=== PATIENT | male | born 1980 | race Caucasian/White ===

== ENCOUNTER 2017-12-28 15:17 | Emergency (ER) | payer OTHER ==
[2017-12-28] MEDS ORDERED: PRED20TA6 PO (15:41)
[2017-12-28] MEDS ORDERED: OMEP40CA48 PO (15:41)
[2017-12-28] MEDS ORDERED: TRAZ100T31 PO (15:41)
[2017-12-28] MEDS ORDERED: PRE200PT PO (15:41)
[2017-12-28] MEDS ORDERED: BACL-1 PO (15:41)
--- NOTE | 2017-12-28 15:46 | ER Report ---
History and Physical Time Seen By MD: 15:46 Hx. of Stated Complaint: PATIENT STATES THAT YESTERDAY HE FELL AT WORK WENT TO [facility], CAME FROM PHYSICAL THERAPY WITH TERRIBLE PAIN; STATES THAT HE HAS 10/10 PAIN (FLORENTIN CRYSTAL MD) HPI/ROS CHIEF COMPLAINT: back pain HISTORY OF PRESENT ILLNESS: This is a 37 year old male. He had an injury at work where he slipped and landed on his left hip. He has a history of chronic low back pain and this has worsened his pain. He was able to walk and work in the past, but now pain is so severe that he cannot walk. Constant pain with acute worsening. He was seen at [facility] urgent care yesterday and the injury occurred yesterday. He was prescribed prednisone and baclofen, no relief. He went to [facility] today, and they were concerned about a neurological problem. He feels like he is not able to urinate well and felt like he would loose control of urination. He has numbness in the left foot. States that it feels like a club. Normal sensation above the ankle. Burning in medial left thigh. Pain in lateral hip. Has a history of bilateral hip replacements due to avascular necrosis. Has a known problem in low back from degenerative disc disease. Feels numbness in the saddle area. Cannot walk because of pain, but says he is not weak, just in too much pain. No fevers or chills with this. No pain in the upper back or neck, just in the low back where he has chronic pain in the past. No shortness of breath. No chest pain. No loss of control of bowels. REVIEW OF SYSTEMS: as above. (FLORENTIN CRYSTAL MD) Allergies: Coded Allergies: Penicillins (Verified Allergy, Unknown, HIVES, 12/28/17) cephalexin (Verified Allergy, Unknown, 12/28/17) erythromycin base (Verified Allergy, Unknown, 12/28/17) morphine (Verified Allergy, Unknown, 12/28/17) oxycodone (Verified Allergy, Unknown, 12/28/17) Home Meds Active Scripts Methocarbamol (ROBAXIN-750) 750 Mg Tablet, 1-2 TAB PO TID Y for muscle spasm relief, #30 Prov:ASHOK CORBIN DO 12/28/17 Hydromorphone Hcl (DILAUDID) 2 Mg Tablet, 2 MG PO Q4H Y for PAIN, #15 Prov:ASHOK CORBIN DO 12/28/17 Reported Medications Baclofen (BACLOFEN) 10 Mg Tablet, 10 MG PO TID, #30 TAB 12/28/17 Prednisone (PREDNISONE) 20 Mg Tablet, 20 MG PO QDAY, TAB 12/28/17 Trazodone Hcl (TRAZODONE HCL) 100 Mg Tablet, 100 MG PO TID, TAB 12/28/17 Omeprazole (OMEPRAZOLE) 40 Mg Capsule.dr, 40 MG PO QDAY, CAP 12/28/17 Pregabalin (LYRICA) 200 Mg Cap, 200 MG PO 2-3XD, CAP 12/28/17 Reviewed Nurses Notes: Yes (FLORENTIN CRYSTAL MD) Hx Substance Use Disorder: No Hx Alcohol Use: No (FLORENTIN CRYSTAL MD) Constitutional Vital Sign - Last 24 Hours 12/28/17 12/28/17 12/28/17 12/28/17 15:23 15:23 15:30 15:47 Temp 98.0 Pulse 66 61 Resp 18 B/P (MAP) 152/108 152/108 (123) 142/100 (114) Pulse Ox 96 96 O2 Delivery Room Air 12/28/17 12/28/17 12/28/17 12/28/17 16:00 16:17 16:30 16:47 Pulse 60 53 B/P (MAP) 163/103 (123) 158/103 (121) Pulse Ox 95 97 12/28/17 12/28/17 12/28/17 12/28/17 17:00 18:30 18:47 19:00 Pulse 63 57 B/P (MAP) 151/96 (114) 139/102 (114) 150/106 (121) Pulse Ox 96 96 Intake and Output 12/28/17 12/28/17 12/29/17 15:00 23:00 07:00 Intake Total 1000 ml Balance 1000 ml (ASHOK CORBIN ) Physical Exam General Appearance: The patient is alert. No acute distress. Eyes: Pupils are equal, round. No pallor, injection or icterus. ENT: Mucous membranes are moist. Neck: Supple and non tender. Respiratory: Lungs breathing easily and clear. Cardiovascular: Regular rate and rhythm. Normal capillary refill. No edema. Gastrointestinal: Abdomen is soft and non tender. Genitourinary: Normal sensation in the saddle and wilbur-rectal area at this time. Neurological: Alert and oriented x3. Has numbness from the ankle down. Normal in the lower leg. Hyperesthesia in the thigh, more in medial area. No weakness in the legs. Skin: Warm and dry. No rashes. Musculoskeletal: Pain with palpation over the lumbar spine, the sacrum and coccyx, and left hip. Full range of motion is present but with pain. No tenderness over the thoracic or cervical spine. DIFFERENTIAL DIAGNOSIS: After history and physical exam, differential diagnosis was considered for a patient with history of chronic low back pain, fall yesterday at work and now with worsening pain and concern for a neurologic problem associated with the low back pain which is worsened from the fall. ([facility]) Medical Decision Making EKG/Imaging Imaging Results: MRI of the lumbar spine was obtained. The results of the study are EXAMINATION: MRI lumbar spine without IV contrast MRI lumbar spine with IV contrast HISTORY: Fall, history of disc disease, worsened pain, urinary symptoms. COMPARISON: None. TECHNIQUE: Multi-planar, multi-sequence lumbar spine MRI was performed before and after IV contrast. CONTRAST: 15 mL of IV MultiHance gadolinium. FINDINGS: Alignment: Normal. Vertebral marrow signal: Vertebral body heights are maintained. There is no bone marrow edema. Distal thoracic cord: Negative. Conus: negative, terminates at T12-L1. Cauda equina: Negative. Paravertebral soft tissues: Negative. Visualized abdominal and pelvic structures: Negative. Enhancement pattern: Negative. Disc spaces: Lower thoracic spine: Normal. L1-2: Normal. L2-3: Normal. L3-4: Minimal disc bulge eccentric to the left and bilateral facet hypertrophy. Mild left foraminal stenosis without significant central canal stenosis. L4-5: Disc desiccation with broad-based disc protrusion with annular tear and mild bilateral facet hypertrophy. Mild central canal stenosis, mild bilateral lateral recess stenosis, and mild bilateral foraminal stenosis. L5-S1: Normal. IMPRESSION: 1. Mild degenerative disc disease and facet arthropathy is worst at L4-5 where there is mild spinal stenosis, mild bilateral lateral recess stenosis, and mild bilateral foraminal stenosis. No significant nerve root compression. 2. Annular tear at L4-5. 3. No acute fracture of the lumbar spine. The study was read by the radiologist. I viewed the images myself on the PACS system. (ASHOK CORBIN DO) ED Course/Re-evaluation Clinical Indication for ER IV: IV Access ED Course Based on history and injury with current symptoms suggesting possible cauda equina, we went ahead and got an MRI. Dilaudid and Norflex given for pain, and a small amount of relief. During MRI, had further pain, so re-dosed the Dilaudid for him. Turned Over The care of the patient was turned over to Dr. Corbin. Florentin Crystal M.D. I authorize my typed signature that I authenticated this report. (FLORENTIN CRYSTAL MD) Decision to Disposition Date: Dec 28, 2017 Decision to Disposition Time: 20:00 (ASHOK CORBIN DO) Depart Departure Latest Vital Signs Vital Signs Date Time Temp Pulse Resp B/P (MAP) Pulse Ox O2 Delivery O2 Flow Rate FiO2 12/28/17 19:00 57 150/106 (121) 96 12/28/17 15:23 98.0 18 Room Air (ASHOK CORBIN DO) Impression: Primary Impression: Annular tear of lumbar disc Condition: Improved Disposition: HOME OR SELF-CARE Referrals: NOREEN DEL VALLE MD New Scripts Methocarbamol (ROBAXIN-750) 750 Mg Tablet 1-2 TAB PO TID Y for muscle spasm relief, #30 Prov: ASHOK CORBIN DO 12/28/17 Hydromorphone Hcl (DILAUDID) 2 Mg Tablet 2 MG PO Q4H Y for PAIN, #15 Prov: ASHOK CORBIN DO 12/28/17 Patient Instructions: Degenerative Disc Disease (ED) Additional Instructions: Take ibuprofen 200 mg 3-4 tablets 3 times a day with food Follow-up with Dr. Noreen Del Valle, spine surgeon at [facility] within one week FLORENTIN CRYSTAL MD Dec 28, 2017 15:46 ASHOK CORBIN DO Dec 28, 2017 20:04
[2017-12-28] MEDS ORDERED: HYDROmorphone* 1 MG/ML 1 MG/ML ML IVP ONE ×3 (15:55→20:00)
[2017-12-28] MEDS ORDERED: ORPHENADRINE 60MG/2ML INJ IVP ONE (15:55)
[2017-12-28] MEDS ORDERED: NS(*) 0.9% 1000 ML BAG 1,000 ML IV ONE (15:55)
[2017-12-28] MEDS ORDERED: GADOBENATE 529MG/1ML 15ML VIAL IVP ONE (16:20)
--- NOTE | 2017-12-28 17:05 | RADIOLOGY IMAGING REPORT ---
FACILITY: [facility] [place] PATIENT NAME: Ryan King : 1980 MR: [id number] V: [id number] EXAM DATE: ORDERING PHYSICIAN: VANESSA MARTINEZ TECHNOLOGIST: Location: [facility] Patient: Ryan King : 1980 Visit/Account:[id number] Date of Sevice: 12/28/2017 EXAMINATION: Orbit radiograph single view HISTORY: Pre-MRI screening. COMPARISON: None. FINDINGS: Single view of the orbits is obtained. No radiopaque or metallic foreign bodies of either orbit. Visualized bony structures are intact. IMPRESSION: Orbits are cleared for MRI. Report Dictated By: Leigh Vidales MD at 12/28/2017 5:01 PM Report E-Signed By: Leigh Vidales MD at 12/28/2017 5:02 PM WSN:[id number]
--- NOTE | 2017-12-28 18:50 | RADIOLOGY IMAGING REPORT ---
[place] [facility] [place]: Ryan King : 1980 MR: [id number] V: [id number] EXAM DATE: ORDERING PHYSICIAN: VANESSA MARTINEZ TECHNOLOGIST: Location: [facility] Patient: Rayn King : 1980 Visit/Account:[id number] Date of Sevice: 12/28/2017 EXAMINATION: MRI lumbar spine without IV contrast MRI lumbar spine with IV contrast HISTORY: Fall, history of disc disease, worsened pain, urinary symptoms. COMPARISON: None. TECHNIQUE: Multi-planar, multi-sequence lumbar spine MRI was performed before and after IV contrast. CONTRAST: 15 mL of IV MultiHance gadolinium. FINDINGS: Alignment: Normal. Vertebral marrow signal: Vertebral body heights are maintained. There is no bone marrow edema. Distal thoracic cord: Negative. Conus: negative, terminates at T12-L1. Cauda equina: Negative. Paravertebral soft tissues: Negative. Visualized abdominal and pelvic structures: Negative. Enhancement pattern: Negative. Disc spaces: Lower thoracic spine: Normal. L1-2: Normal. L2-3: Normal. L3-4: Minimal disc bulge eccentric to the left and bilateral facet hypertrophy. Mild left foraminal s tenosis without significant central canal stenosis. L4-5: Disc desiccation with broad-based disc protrusion with annular tear and mild bilateral facet hy pertrophy. Mild central canal stenosis, mild bilateral lateral recess stenosis, and mild bilateral fo raminal stenosis. L5-S1: Normal. IMPRESSION: 1. Mild degenerative disc disease and facet arthropathy is worst at L4-5 where there is mild spinal s tenosis, mild bilateral lateral recess stenosis, and mild bilateral foraminal stenosis. No significan t nerve root compression. 2. Annular tear at L4-5. 3. No acute fracture of the lumbar spine. Report Dictated By: Leigh Vidales MD at 12/28/2017 6:31 PM Report E-Signed By: Leigh Vidales MD at 12/28/2017 6:46 PM WSN:[id number]
[2017-12-28] MEDS ORDERED: METH-543 PO (20:03)
[2017-12-28] MEDS ORDERED: HYDR2TAB74 PO (20:03)
[2017-12-28 20:30] VITALS: BP 136/91
[2017-12-28] MEDS ORDERED: HYDROmorphone 2 MG TAB TH 2 TAB/BOTTLE PO ONE (20:45)
== END 2017-12-28 20:55 | disposition home or self-care (01) ==
LOC: ER 15:26
DX: M51.36 Other intervertebral disc degeneration, lumbar region (principal)
CPT/HCPCS: 96361; 96374; 96375; 96376; 99284; A9270; A9577; J1170; J2360; J7030; 70030; 72158

== ENCOUNTER 2018-02-01 14:28 | Emergency (ER) | payer OTHER ==
[~2018-02-01 14:28] MED LIST: BACL-1 PO; HYDR2TAB74 PO; METH-543 PO; OMEP40CA48 PO; PRE200PT PO; PRED20TA6 PO; TRAZ100T31 PO
--- NOTE | 2018-02-01 14:38 | ER Report ---
History and Physical Time Seen By MD: 14:37 Hx. of Stated Complaint: PATIENT SLIPPED AT WORK LAST MONTH. HE IS REPORTING LOWER BACK PAIN. HPI/ROS CHIEF COMPLAINT: Inability to void or defecate 4 days HISTORY OF PRESENT ILLNESS: 37-year-old male patient presents to the emergency room with complaint of inability to void or defecate in the past 4 days. Patient states that he had an injury on 27 December. He states he slipped while he was in the walk-in freezer at [facility]. He states he landed hard on his right hip. Since then he's been having a difficult time with back pain. He did see physical therapy, and stated that he felt he was going to have incontinence of urine at that time. He did come up to the emergency room where he had an MRI done which showed an annular tear in the L4-L5 region. Patient is discharged home and told to follow-up with Dr. Del Valle, orthopedic surgeon. He had an appointment which was canceled by Workmen's [employer]. Patient states that he is not been over from back to work since the injury. He states that in the last 4 days he is been unable to urinate or have a bowel movement. Patient states that he has been taking a muscle relaxer, but has run out recently. He is also having oxycodone which he takes for pain. Patient states he does have some numbness and tingling in the saddle region. He did go see [facility] who referred him here to the emergency room. Patient denies having any fevers, chills, nausea, vomiting or diarrhea. REVIEW OF SYSTEMS: Respiratory: No cough, no dyspnea. Cardiovascular: No chest pain, no palpitations. Gastrointestinal: No vomiting, no abdominal pain. Musculoskeletal: As noted above Allergies: Coded Allergies: Penicillins (Verified Allergy, Unknown, HIVES, 12/28/17) cephalexin (Verified Allergy, Unknown, 12/28/17) erythromycin base (Verified Allergy, Unknown, 12/28/17) morphine (Verified Allergy, Unknown, 12/28/17) oxycodone (Verified Allergy, Unknown, 12/28/17) Home Meds Active Scripts Methocarbamol (ROBAXIN-750) 750 Mg Tablet, 1500 MG PO TID Y for MUSCLE SPASMS, # 30 TAB Prov:SMOOTH HUERTA PERMIT TECHNICIAN 02/01/18 Oxycodone Hcl (OXYCODONE HCL) 5 Mg Capsule, 5 MG PO Q4-6H Y for PAIN, #12 CAPSULE Prov:BRADLEYSMOOTH PERMIT TECHNICIAN 02/01/18 Methocarbamol (ROBAXIN-750) 750 Mg Tablet, 1-2 TAB PO TID Y for muscle spasm relief, #30 Prov:ASHOK RAMIREZ DO 12/28/17 Hydromorphone Hcl (DILAUDID) 2 Mg Tablet, 2 MG PO Q4H Y for PAIN, #15 Prov:ASHOK RAMIREZ DO 12/28/17 Reported Medications Baclofen (BACLOFEN) 10 Mg Tablet, 10 MG PO TID, #30 TAB 12/28/17 Prednisone (PREDNISONE) 20 Mg Tablet, 20 MG PO QDAY, TAB 12/28/17 Trazodone Hcl (TRAZODONE HCL) 100 Mg Tablet, 100 MG PO TID, TAB 12/28/17 Omeprazole (OMEPRAZOLE) 40 Mg Capsule.dr, 40 MG PO QDAY, CAP 12/28/17 Pregabalin (LYRICA) 200 Mg Cap, 200 MG PO 2-3XD, CAP 12/28/17 Past Medical/Surgical History Patient has a past medical history of fibromyalgia, hypertension, hyperlipidemia , asthma, reflux, osteoporosis, osteopenia, fractures, depression Reviewed Nurses Notes: Yes Hx Substance Use Disorder: No Hx Alcohol Use: No Constitutional Vital Sign - Last 24 Hours 02/01/18 02/01/18 02/01/18 02/01/18 14:30 14:31 14:45 14:58 Temp 98.3 Pulse 78 67 Resp 20 B/P (MAP) 142/101 142/101 (115) 137/89 (105) Pulse Ox 98 94 O2 Delivery Room Air 02/01/18 02/01/18 02/01/18 02/01/18 15:00 15:15 15:28 15:30 Pulse 68 B/P (MAP) 125/86 (99) 140/117 (125) 130/93 (105) Pulse Ox 92 02/01/18 02/01/18 02/01/18 02/01/18 16:30 17:00 17:14 17:30 Pulse ??? 66 64 B/P (MAP) 130/89 (103) 123/97 (106) Pulse Ox 92 91 02/01/18 02/01/18 17:45 17:55 B/P (MAP) 128/88 (101) 124/94 (104) Physical Exam General Appearance: The patient is alert, has no immediate need for airway protection and no current signs of toxicity. Respiratory: Chest is non tender, lungs are clear to auscultation. Cardiac: regular rate and rhythm Gastrointestinal: Abdomen is soft and non tender, no masses, bowel sounds normal. Rectal exam showed patient had good rectal tone. Musculoskeletal: Neck: Neck is supple and non tender. Extremities have full range of motion and are non tender. Skin: No rashes or lesions. Neuro: Patient had good strength bilaterally in his legs, sensation was present in both feet, patient was able to identify the direction that the toes were pointing. DIFFERENTIAL DIAGNOSIS: After history and physical exam differential diagnosis was considered for back pain including but not limited to muscular pain, herniated disc, spine fracture, intra-abdominal causes and urinary tract infection. Included in the differential is Cauda equina. Medical Decision Making Data Points Result Diagram: 02/01/18 1537 Laboratory Hematology Test 02/01/18 15:06 02/01/18 15:37 Urine Color Yellow Urine Clarity Clear Urine pH 6.0 pH (4.8-9.5) Urine Specific Leopold 1.016 Urine Protein Negative mg/dL (NEGATIVE) Urine Glucose (UA) Negative mg/dL (NEGATIVE) Urine Ketones Negative mg/dL (NEGATIVE) Urine Blood Negative (NEGATIVE) Urine Nitrite Negative (NEGATIVE) Urine Bilirubin Negative (NEGATIVE) Urine Urobilinogen Negative mg/dL (0.2-1.9) Urine Leukocyte Esterase Negative (NEGATIVE) Urine RBC <1 /HPF (0-2/HPF) Urine WBC <1 /HPF (0-5/HPF) Urine Squamous Epithelial Cells Few /LPF (</=FEW) Urine Bacteria Negative /HPF (NONE-FEW) Urine Mucus None /HPF (NONE-FEW) Sodium Level 139 mmol/L (137-145) Potassium Level 4.1 mmol/L (3.5-5.0) Chloride Level 101 mmol/L (98-107) Carbon Dioxide Level 28 mmol/L (22-30) Blood Urea Nitrogen 15 mg/dl (9-21) Creatinine 1.20 mg/dl (0.66-1.25) Glomerular Filtration Rate Calc > 60.0 Random Glucose 85 mg/dl (75-110) Calcium Level 9.5 mg/dl (8.4-10.2) Total Bilirubin 1.3 mg/dl (0.2-1.3) Aspartate Amino Transf (AST/SGOT) 39 U/L (0-35) Alanine Aminotransferase (ALT/SGPT) 51 U/L (0-56) Alkaline Phosphatase 83 U/L (0-126) Total Protein 7.5 g/dl (6.3-8.2) Albumin 4.4 g/dl (3.5-5.0) Chemistry Test 02/01/18 15:06 02/01/18 15:37 Urine Color Yellow Urine Clarity Clear Urine pH 6.0 pH (4.8-9.5) Urine Specific Leopold 1.016 Urine Protein Negative mg/dL (NEGATIVE) Urine Glucose (UA) Negative mg/dL (NEGATIVE) Urine Ketones Negative mg/dL (NEGATIVE) Urine Blood Negative (NEGATIVE) Urine Nitrite Negative (NEGATIVE) Urine Bilirubin Negative (NEGATIVE) Urine Urobilinogen Negative mg/dL (0.2-1.9) Urine Leukocyte Esterase Negative (NEGATIVE) Urine RBC <1 /HPF (0-2/HPF) Urine WBC <1 /HPF (0-5/HPF) Urine Squamous Epithelial Cells Few /LPF (</=FEW) Urine Bacteria Negative /HPF (NONE-FEW) Urine Mucus None /HPF (NONE-FEW) Glomerular Filtration Rate Calc > 60.0 Calcium Level 9.5 mg/dl (8.4-10.2) Total Bilirubin 1.3 mg/dl (0.2-1.3) Aspartate Amino Transf (AST/SGOT) 39 U/L (0-35) Alanine Aminotransferase (ALT/SGPT) 51 U/L (0-56) Alkaline Phosphatase 83 U/L (0-126) Total Protein 7.5 g/dl (6.3-8.2) Albumin 4.4 g/dl (3.5-5.0) Urinalysis Test 02/01/18 15:06 Urine Color Yellow Urine Clarity Clear Urine pH 6.0 pH (4.8-9.5) Urine Specific Leopold 1.016 Urine Protein Negative mg/dL (NEGATIVE) Urine Glucose (UA) Negative mg/dL (NEGATIVE) Urine Ketones Negative mg/dL (NEGATIVE) Urine Blood Negative (NEGATIVE) Urine Nitrite Negative (NEGATIVE) Urine Bilirubin Negative (NEGATIVE) Urine Urobilinogen Negative mg/dL (0.2-1.9) Urine Leukocyte Esterase Negative (NEGATIVE) Urine RBC <1 /HPF (0-2/HPF) Urine WBC <1 /HPF (0-5/HPF) Urine Squamous Epithelial Cells Few /LPF (</=FEW) Urine Bacteria Negative /HPF (NONE-FEW) Urine Mucus None /HPF (NONE-FEW) EKG/Imaging Imaging MRI of the lumbar spine with and without contrast Indication: Sagittal paracentesis. Back injury one month ago. Worsening pain. Comparison: 12/28/2017. Technique: Sagittal T2-weighted, sagittal STIR, sagittal T1-weighted, axial T2- weighted fat-saturated, and axial T1-weighted images of the lumbar spine were obtained. Sagittal T1-weighted fat saturated post contrast and axial T1- weighted post contrast images were obtained through the lumbar spine. A total of 15 ml IV MultiHance contrast was administered. Findings: The vertebral bodies are aligned and of normal size and signal intensity. No compression fractures or bony lesions. The soft tissues are unremarkable. The lumbar spine down to the L2-3 level is normal. There is no abnormal enhancement or enhancing lesion seen on this examination. L3-L4: The distal show mild broad-based disc bulge with a slightly more prominent process at the left foraminal region. This does cause mild narrowing of the left neural foramina without affecting left exiting nerve. There is mild facet arthropathy without other significant degenerative changes. The right neural foramina shows no significant narrowing of the right exiting nerve is normal. The spinal nerve roots are normal. No significant change from the previous exam. L4-L5: There is degenerative facet changes with mild disc space narrowing. No other significant degenerative osseous changes. The disc is desiccated and does show a broadbase disc bulge without focal disc herniation. There is continued increased signal in the posterior annulus consistent with a tear which is stable. These findings do cause mild narrowing of the canal, foramina recess bilaterally and neural foramina bilaterally. The exiting nerves do not appear to be affected. No significant change from the previous exam. L5-S1: No significant degenerative osseous changes. No obvious disc herniation or protrusions. No canal or foraminal narrowing. The exiting nerves are normal. The S1 nerves are normal. Spinal nerve roots are normal. There is no focal area of abnormal contrast enhancement. Impression: 1. No acute abnormality. No abnormal enhancement. 2. Stable degenerative disc and osseous changes at L3-4 and L4-5 level with more prominent L4-5 level. Mild sequelae is described above. Report Dictated By: Bret Esteban at 02/01/2018 5:14 PM Report E-Signed By: Bret Esteban at 02/01/2018 5:22 PM KUB SINGLE VIEW ABDOMEN INDICATION: Unable to have a bowel movement in 3-4 days. COMPARISON: None available FINDINGS: Moderate stool seen throughout colon. Bowel gas pattern is nonobstructed nondilated with some fluid-filled loops small bowel. Abdominal soft tissues are grossly normal without suspicious lucencies or abnormal calcifications. No acute bony abnormality. IMPRESSION: Moderate stool seen throughout colon. No indication of obstruction. Report Dictated By: Bret Esteban at 02/01/2018 3:11 PM Report E-Signed By: Bret Esteban at 02/01/2018 3:12 PM ED Course/Re-evaluation ED Course Patient was admitted to exam room, history and physical were obtained. Differential diagnoses were considered. On examination patient did have low back pain. Seemed to be worse on the right side than the left. Patient was complaining of some subtle paresthesia as well as difficulty urinating and defecating. A rectal exam was done patient had good rectal tone. An MRI was done after a bladder scan was done. Patient had 400 cc in his bladder. Patient did urinate and then we got a repeat bladder scan which showed zero. Due to the contrast on the MRI and a CMP was done which was normal. MRI showed no acute changes since last MRI. I discussed findings with patient. Patient was complaining pain did receive 50 mg of fentanyl which he said did not improve his pain at all. We will go ahead and discharge patient home. I expressed to the patient the need that he has to follow-up with orthopedics as that is going to be the stethoscope fixes. I encouraged him to follow-up with Workmen's [employer]. Patient is return to the emergency room if condition worsens. We will go ahead and give the patient a muscle relaxer as well as oxycodone. Patient verbalized understanding and agreement with plan. Decision to Disposition Date: Feb 01, 2018 Decision to Disposition Time: 17:40 Depart Departure Latest Vital Signs Vital Signs Date Time Temp Pulse Resp B/P (MAP) Pulse Ox O2 Delivery O2 Flow Rate FiO2 02/01/18 17:55 124/94 (104) 02/01/18 17:30 64 91 02/01/18 14:30 98.3 20 Room Air Impression: Primary Impression: Annular tear of lumbar disc Additional Impression: Back pain Condition: Improved Disposition: HOME OR SELF-CARE Referrals: ANGEL TENORIO (PCP) NOREEN DEL VALLE MD New Scripts Methocarbamol (ROBAXIN-750) 750 Mg Tablet 1500 MG PO TID Y for MUSCLE SPASMS, #30 TAB Prov: SMOOTH HUERTA 02/01/18 Oxycodone Hcl (OXYCODONE HCL) 5 Mg Capsule 5 MG PO Q4-6H Y for PAIN, #12 CAPSULE Prov: SMOOTH HUERTA 02/01/18 Patient Instructions: Acute Low Back Pain (ED) Additional Instructions: Limit activity by pain. Get plenty of rest. Follow up with Dr. Del Valle at [facility], call Workmen's Comp to get the approval. Return to the ER if condition worsens. Take stool softeners daily. Problem Qualifiers Additional Impression: Back pain Back pain location: low back pain Chronicity: acute Back pain laterality: right Sciatica presence: without sciatica Qualified Codes: M54.5 - Low back pain SMOOTH HUERTA Feb 01, 2018 14:38
[2018-02-01] MEDS ORDERED: GADOBENATE 529MG/1ML 15ML VIAL IVP ONE (15:15)
--- NOTE | 2018-02-01 15:16 | RADIOLOGY IMAGING REPORT ---
FACILITY: [facility] PATIENT NAME: Ryan King : 1980 MR: [id number] V: [id number] EXAM DATE: ORDERING PHYSICIAN: SMOOTH HUERTA TECHNOLOGIST: Location: [facility] [place] Patient: Ryan King : 1980 Visit/Account:[id number] Date of Sevice: 02/01/2018 KUB SINGLE VIEW ABDOMEN INDICATION: Unable to have a bowel movement in 3-4 days. COMPARISON: None available FINDINGS: Moderate stool seen throughout colon. Bowel gas pattern is nonobstructed nondilated with some fluid-filled loops small bowel. Abdominal soft tissues are grossly normal without suspicious marcela encies or abnormal calcifications. No acute bony abnormality. IMPRESSION: Moderate stool seen throughout colon. No indication of obstruction. Report Dictated By: Bret Esteban at 02/01/2018 3:11 PM Report E-Signed By: Bret Esteban at 02/01/2018 3:12 PM WSN:[id number]
[2018-02-01] MEDS ORDERED: fentaNYL CITR 100 MCG/2 ML AMP IVP ONE (17:05)
--- NOTE | 2018-02-01 17:26 | RADIOLOGY IMAGING REPORT ---
FACILITY: [facility] PATIENT NAME: Ryan King : 1980 MR: [id number] V: [id number] EXAM DATE: ORDERING PHYSICIAN: SMOOTH HUERTA TECHNOLOGIST: Location: [facility] Patient: Ryan King : 1980 Visit/Account:[id number] Date of Sevice: 02/01/2018 MRI of the lumbar spine with and without contrast Indication: Sagittal paracentesis. Back injury one month ago. Worsening pain. Comparison: 12/28/2017. Technique: Sagittal T2-weighted, sagittal STIR, sagittal T1-weighted, axial T2-weighted fat-saturated , and axial T1-weighted images of the lumbar spine were obtained. Sagittal T1-weighted fat saturated post contrast and axial T1-weighted post contrast images were obtained through the lumbar spine. A to sebastian of 15 ml IV MultiHance contrast was administered. Findings: The vertebral bodies are aligned and of normal size and signal intensity. No compression fractures or bony lesions. The soft tissues are unremarkable. The lumbar spine down to the L2-3 level is normal. There is no abnormal enhancement or enhancing lesion seen on this examination. L3-L4: The distal show mild broad-based disc bulge with a slightly more prominent process at the le ft foraminal region. This does cause mild narrowing of the left neural foramina without affecting lef t exiting nerve. There is mild facet arthropathy without other significant degenerative changes. The right neural foramina shows no significant narrowing of the right exiting nerve is normal. The spinal nerve roots are normal. No significant change from the previous exam. L4-L5: There is degenerative facet changes with mild disc space narrowing. No other significant degen erative osseous changes. The disc is desiccated and does show a broadbase disc bulge without focal di sc herniation. There is continued increased signal in the posterior annulus consistent with a tear wh ich is stable. These findings do cause mild narrowing of the canal, foramina recess bilaterally and n eural foramina bilaterally. The exiting nerves do not appear to be affected. No significant change fr om the previous exam. L5-S1: No significant degenerative osseous changes. No obvious disc herniation or protrusions. No c anal or foraminal narrowing. The exiting nerves are normal. The S1 nerves are normal. Spinal nerve ro ots are normal. There is no focal area of abnormal contrast enhancement. Impression: 1. No acute abnormality. No abnormal enhancement. 2. Stable degenerative disc and osseous changes at L3-4 and L4-5 level with more prominent L4-5 level . Mild sequelae is described above. Report Dictated By: Bret Esteban at 02/01/2018 5:14 PM Report E-Signed By: Bret Esteban at 02/01/2018 5:22 PM WSN:[id number]
[2018-02-01] MEDS ORDERED: METHOCARBAMOL 500 MG TAB PO ONE (17:50)
[2018-02-01] MEDS ORDERED: oxyCODONE HCL 5 MG CAP PO ONE (17:50)
[2018-02-01] MEDS ORDERED: METH-543 PO (17:52)
[2018-02-01] MEDS ORDERED: OXYC5CAP21 PO (17:52)
[2018-02-01 17:55] VITALS: BP 124/94
== END 2018-02-01 18:04 | disposition home or self-care (01) ==
LOC: ER 14:38
DX: M51.36 Other intervertebral disc degeneration, lumbar region (principal); M79.7 Fibromyalgia; I10 Essential (primary) hypertension; E78.5 Hyperlipidemia, unspecified; K21.9 Gastro-esophageal reflux disease without esophagitis; M19.90 Unspecified osteoarthritis, unspecified site; F32.9 Major depressive disorder, single episode, unspecified; Z79.899 Other long term (current) drug therapy
CPT/HCPCS: 72158; 74018; 81001; 96374; 99284; A9577; J3010; 82040; 82247; 82310; 82374; 82435; 82565; 82947; 84075; 84132; 84155; 84295; 84450; 84460; 84520

== ENCOUNTER → 2018-03-21 | Outpatient (CLI) | payer BC, OTHER ==
[~2018-03-21] MED LIST changes: +CYCL10TA29 PO; +DEX4 PO; +LORA-1455 PO; +ONDA4TAB PO; +OXYC5CAP21 PO; +PROC10TA4 PO; +SIMV-49 PO; +VORT10TA PO
--- NOTE | 2018-03-21 14:54 | RADIOLOGY IMAGING REPORT ---
FACILITY: [facility] [place] PATIENT NAME: Ryan King : 1980 MR: [id number] V: [id number] EXAM DATE: ORDERING PHYSICIAN: FLORENTIN JOHNSON TECHNOLOGIST: Location: [facility] [place] Patient: Ryan King : 1980 Visit/Account:[id number] Date of Sevice: 03/21/2018 PICC LINE INSERTION HISTORY: Single-lumen left arm PICC line for chemotherapy requested Technique: The skin in the left upper arm was prepped draped and anesthetized with 1% lidocaine. Utilizing ultr asound guidance entry into the right brachial vein achieved. An 018 wire was advanced to the right h eart and a peel-away catheter placed. The wire was removed for measuring the PICC line which was cut at 41.5 cm. This was advanced through the peel-away sheath with the distal tip terminating at the c avoatrial junction in good position. A postplacement film documented good positioning. The catheter was flushed with saline. A buffered catheter was placed. The catheter was then secured to the left arm with a stay fix device. IMPRESSION: 1. Successful placement of a single-lumen PICC line from the left arm as described. Fluoroscopy time of 0.8 minutes. AK 2.9mGy Report Dictated By: Nelson Andres MD at 03/21/2018 2:44 PM Report E-Signed By: Nelson Andres MD at 03/21/2018 2:49 PM WSN:[email or web address]
--- NOTE | 2018-03-21 15:00 | RADIOLOGY IMAGING REPORT ---
FACILITY: [facility] [place] PATIENT NAME: Ryan King : 1980 MR: [id number] V: [id number] EXAM DATE: ORDERING PHYSICIAN: FLORENTIN JOHNSON TECHNOLOGIST: Location: [facility] Patient: Ryan King : 1980 Visit/Account:[id number] Date of Sevice: 03/21/2018 PICC LINE PLACEMENT HISTORY: Ultrasound provided for placement of a PICC line for chemotherapy Bilateral upper extremity ultrasound: Findings Ultrasound imaging demonstrating patent right and left brachial veins which are widely patent. There were small attenuated basilic veins seen. The patient desired placement within the left arm. Ultrasound was utilized to gain entrance into the left basilic vein. A permanent image documenting p lacement of the 0.018 wire within the left brachial vein sent to PACS. IMPRESSION: 1. Ultrasound utilized for gaining entrance into the left basilic vein for placement of a chemotherapy PICC line. Report Dictated By: Nelson Andres MD at 03/21/2018 2:49 PM Report E-Signed By: Nelson Andres MD at 03/21/2018 2:55 PM WSN:[email or web address]
== END ==
LOC: US 00:33
PROVIDERS: ATTEND Internal Medicine Hematology
DX: C02.9 Malignant neoplasm of tongue, unspecified (principal)
CPT/HCPCS: 36569; 76937; C1751

== ENCOUNTER 2018-04-09 17:25 | Emergency (ER) | payer BC ==
[~2018-04-09 17:25] MED LIST changes: +BUSP15TA69 PO
[2018-04-09 17:29] VITALS: BP 156/106
--- NOTE | 2018-04-09 18:11 | ER Report ---
History and Physical Time Seen By MD: 18:11 Hx. of Stated Complaint: left index finger lac from a knife while cutting up a deer HPI/ROS CHIEF COMPLAINT: Finger laceration HISTORY OF PRESENT ILLNESS: 38-year-old male patient presents to the emergency room with complaint of a left index finger laceration. Patient states that he was skinning his tea when he touched the bladed knife against his finger. Patient states that his last tetanus shot was approximately one year ago. Patient denies any numbness tingling. Patient states that this occurred approximately 20 minutes prior to arrival. He did apply pressure to the finger. 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 Allergies: Coded Allergies: Penicillins (Verified Allergy, Unknown, HIVES, 04/09/18) cephalexin (Verified Allergy, Unknown, 04/09/18) erythromycin base (Verified Allergy, Unknown, 04/09/18) morphine (Verified Allergy, Unknown, 04/09/18) oxycodone (Verified Allergy, Unknown, 04/09/18) Home Meds Active Scripts Sulfamethoxazole/Trimet 800-160 Mg Tab (BACTRIM DS TABLET) 1 Each Tablet, 1 TAB PO Q12H, #14 TAB Prov:SMOOTH HUERTA 04/09/18 Methocarbamol (ROBAXIN-750) 750 Mg Tablet, 1-2 TAB PO TID PRN for muscle spasm relief, #30 Prov:ASHOK RAMIREZ DO 12/28/17 Reported Medications Buspirone Hcl (BUSPIRONE HCL) 15 Mg Tablet, 15 MG PO BID, #10 TAB 04/02/18 Dexamethasone 4 Mg Tab (DEXAMETHASONE 4 MG TAB) 4 Mg Tab, 8 MG PO DAILY for 3 Days, TAB Take on days 2-4 following cisplatin 03/21/18 Lorazepam (ATIVAN) 0.5 Mg Tablet, 0.5 MG PO Q6H PRN for ANXIETY/INSOMNIA Take 0.5 to 1 mg 03/21/18 Ondansetron (ZOFRAN ODT) 4 Mg Tab.rapdis, 8 MG PO Q8H PRN for NAUSEA/VOMITING, TAB.MAYRA 03/21/18 Prochlorperazine Maleate (Compazine) 10 Mg Tablet, 10 MG PO Q8H PRN for NAUSEA/VOMITING 03/21/18 Simvastatin (SIMVASTATIN) 20 Mg Tablet, 20 MG PO HS, TAB 03/14/18 Cyclobenzaprine Hcl (CYCLOBENZAPRINE HCL) 10 Mg Tablet, 20 MG PO DAILY, #9 TAB 03/14/18 Vortioxetine Hydrobromide (Brintellix) 10 Mg Tablet, 1 TAB PO DAILY 03/13/18 Trazodone Hcl (TRAZODONE HCL) 100 Mg Tablet, 100 MG PO PRN, TAB 12/28/17 Omeprazole (OMEPRAZOLE) 40 Mg Capsule.dr, 40 MG PO QDAY, CAP 12/28/17 Pregabalin (LYRICA) 200 Mg Cap, 200 MG PO 2-3XD, CAP 12/28/17 Discontinued Reported Medications Lorazepam (ATIVAN) 0.5 Mg Tablet, 0.5 MG PO PRN 04/08/18 Baclofen (BACLOFEN) 10 Mg Tablet, 10 MG PO TID, #30 TAB 12/28/17 Past Medical/Surgical History Patient has a past medical history of fibromyalgia, heart murmur, hypertension, hyperlipidemia, asthma, reflux, osteopenia, depression and anxiety. Patient has surgical history of surgery for GI bleed, appendectomy, bilateral hip replacement, shoulder surgery 3. Reviewed Nurses Notes: Yes Hx Smoking: Yes Smoking Status: Former Smoker Exposure to Second Hand Smoke?: No Hx Substance Use Disorder: No Hx Alcohol Use: No Constitutional Vital Sign - Last 24 Hours 04/09/18 17:29 Temp 98.0 Pulse 108 Resp 12 B/P (MAP) 156/106 Pulse Ox 95 O2 Delivery Room Air Physical Exam General appearance: Alert no distress. Respiratory: Chest is non tender, lungs are clear to auscultation. Cardiac: Regular rate and rhythm. Skin: Patient does have a 1.5 similar laceration to the left index finger, it is at the PIP joint. There is no tendon or ligament involvement. Patient has good movement with finger. DIFFERENTIAL DIAGNOSIS: After history and physical exam differential diagnosis was considered for laceration. Medical Decision Making ED Course/Re-evaluation ED Course Patient is admitted and examined, history of physical were obtained. The differential diagnoses were considered. On examination patient has a 1.5cm laceration to the left index finger, at the the PIP joint. The finger was anesthetized, cleaned and repaired described below. Patient is up-to-date on his tetanus shot. Patient tolerated procedure well. We'll go ahead and discharge him home at this time. Due to the location of laceration as well as him being on chemotherapy we'll go ahead and treat him with antibiotics. He is follow-up with a cancer center in 710 days to have sutures removed. He is to return to the emergency room with any concerns. He is monitor for signs of infection. Patient verbalized understanding and agreement with plan. Procedure: Laceration repair. Verbal consent was obtained from the patient. The 1.5 cm laceration on the left index finger, at the PIP joint was anesthetized in the usual fashion. The wound was scrubbed, draped and explored to its base with a gloved finger. There were no deep structures involved. No tendon injury was identified. The wound was repaired with 5 simple interrupted sutures using 5-0 Prolene material. The wound repair was simple. The procedure was performed by myself. Decision to Disposition Date: Apr 09, 2018 Decision to Disposition Time: 18:45 Depart Departure Latest Vital Signs Vital Signs Date Time Temp Pulse Resp B/P (MAP) Pulse Ox O2 Delivery O2 Flow Rate FiO2 04/09/18 17:29 98.0 108 12 156/106 95 Room Air Impression: Primary Impression: Laceration of left index finger Condition: Improved Disposition: HOME OR SELF-CARE Referrals: ANGEL TENORIO (PCP) New Scripts Sulfamethoxazole/Trimet 800-160 Mg Tab (BACTRIM DS TABLET) 1 Each Tablet 1 TAB PO Q12H, #14 TAB Prov: SMOOTH HUERTA 04/09/18 Patient Instructions: Finger Laceration (ED) Additional Instructions: Keep wound dry for 48 hours. Follow up with your primary care provider in the next 7-10 days to have sutures removed. Monitor for signs of infection; redness, swelling, heat, discharge, increasing pain or red streaking. Take Tylenol or Ibuprofen as needed for pain. Return to the ER with any concerns. You may change dressing as needed. Problem Qualifiers Primary Impression: Laceration of left index finger Encounter type: initial encounter Damage to nail status: without damage Foreign body presence: without foreign body Qualified Codes: S61.211A - Laceration without foreign body of left index finger without damage to nail, initial encounter SMOOTH HUERTA Apr 09, 2018 18:11
[2018-04-09] MEDS ORDERED: SULF-198 PO (18:44)
== END 2018-04-09 18:50 | disposition home or self-care (01) ==
LOC: ER 18:21
DX: S61.211A Laceration without foreign body of left index finger without damage to nail, initial encounter (principal)
CPT/HCPCS: 99282

== ENCOUNTER → 2018-05-03 | Outpatient (CLI) | payer BC ==
[~2018-05-03] MED LIST changes: +APIX5TAB PO; +BARIUM SULFATE 148 GM POWDER ONE; +BARIUM SULFATE 240 ML ORAL SUS (NECTAR) ONE; +HYDR473S9; +SULF-198 PO
--- NOTE | 2018-05-03 13:13 | RADIOLOGY IMAGING REPORT ---
FACILITY: [facility] PATIENT NAME: Ryan King : 1980 MR: [id number] V: [id number] EXAM DATE: ORDERING PHYSICIAN: FLORENTIN JOHNSON TECHNOLOGIST: Location: [facility] - [place] Patient: Ryan King : 1980 Visit/Account:[id number] Date of Sevice: 05/03/2018 Barium Swallow Study with Speech Pathology Provided history: History of tongue carcinoma. Dysphagia. COMPARISON STUDIES: None FINDINGS: Fluoroscopy in the radiology part was provided for speech pathology to evaluate swallowing function. A Radiologist was present during the fluoroscopic examination. Anatomical:Negative Aspiration:none Additional incidental: Flash penetration was observed with thin liquids. IMPRESSION: Mild oral and pharyngeal dysphagia. Please refer to the Speech Pathology report for additional information. Fluoroscopy time 2.4 minute DAP 598.94 uGy-m2 Report Dictated By: Grace Rao MD at 05/03/2018 1:02 PM Report E-Signed By: Grace Rao MD at 05/03/2018 1:09 PM WSN:AMIUMUVÁngel
== END ==
LOC: RAD 04:30
PROVIDERS: ATTEND Internal Medicine Hematology
DX: R13.11 Dysphagia, oral phase (principal); R13.12 Dysphagia, oropharyngeal phase
CPT/HCPCS: 74230

== ENCOUNTER 2018-05-05 01:35 | Emergency (ER) | payer BC ==
[~2018-05-05 01:35] MED LIST changes: -BARIUM SULFATE 148 GM POWDER ONE; -BARIUM SULFATE 240 ML ORAL SUS (NECTAR) ONE; -HYDR473S9
--- NOTE | 2018-05-05 01:38 | ER Report ---
History and Physical Time Seen By MD: 01:38 HPI/ROS CHIEF COMPLAINT: Fever HISTORY OF PRESENT ILLNESS: 38-year-old male diagnosed with squamous cell throat cancer, status post partial glossectomy. Patient undergoing chemotherapy every Sunday. He is getting radiation 5 days a week to his throat area. Patient has thrush in his throat and is receiving treatment. He developed a fever last evening of 103. He had another repeat fever of 102. He called in to the oncology providers who recommended he come in for evaluation for the source of the fever. Vision has a mucousy cough. And some upper respiratory infection symptoms. Likely related to radiation therapy. Patient's been taking hydrocodone for pain relief with minimal help relieving his throat pain REVIEW OF SYSTEMS: Respiratory: As above Cardiovascular: No chest pain, no palpitations. Gastrointestinal: No vomiting, no abdominal pain. Musculoskeletal: No back pain. Allergies: Coded Allergies: Penicillins (Verified Allergy, Unknown, HIVES, 04/09/18) cephalexin (Verified Allergy, Unknown, 04/09/18) erythromycin base (Verified Allergy, Unknown, 04/09/18) morphine (Verified Allergy, Unknown, 04/09/18) Home Meds Active Scripts Hydromorphone Hcl (DILAUDID) 2 Mg Tablet, 1-2 TAB PO Q4H PRN for throat cancer pain relief, #15 Prov:ASHOK RAMIREZ DO 05/05/18 Reported Medications Hydrocodone/Acetaminophen 10/300 MG/15 ML (Lortab 10 mg-300 mg/15 ml Elxr) 473 Ml Solution 05/05/18 Apixaban (ELIQUIS) 5 Mg Tablet, 5 MG PO Take 10 mg PO BID x 7 days; then 5 mg PO BID x 3 weeks 04/19/18 Buspirone Hcl (BUSPIRONE HCL) 15 Mg Tablet, 15 MG PO BID, #10 TAB 04/02/18 Dexamethasone 4 Mg Tab (DEXAMETHASONE 4 MG TAB) 4 Mg Tab, 8 MG PO DAILY for 3 Days, TAB Take on days 2-4 following cisplatin 03/21/18 Lorazepam (ATIVAN) 0.5 Mg Tablet, 0.5 MG PO Q6H PRN for ANXIETY/INSOMNIA Take 0.5 to 1 mg 03/21/18 Ondansetron (ZOFRAN ODT) 4 Mg Tab.rapdis, 8 MG PO Q8H PRN for NAUSEA/VOMITING, T AB.MAYRA 03/21/18 Prochlorperazine Maleate (Compazine) 10 Mg Tablet, 10 MG PO Q8H PRN for NAUSEA/VOMITING 03/21/18 Simvastatin (SIMVASTATIN) 20 Mg Tablet, 20 MG PO HS, TAB 03/14/18 Cyclobenzaprine Hcl (CYCLOBENZAPRINE HCL) 10 Mg Tablet, 20 MG PO DAILY, #9 TAB 03/14/18 Vortioxetine Hydrobromide (Brintellix) 10 Mg Tablet, 1 TAB PO DAILY 03/13/18 Trazodone Hcl (TRAZODONE HCL) 100 Mg Tablet, 100 MG PO PRN, TAB 12/28/17 Omeprazole (OMEPRAZOLE) 40 Mg Capsule.dr, 40 MG PO QDAY, CAP 12/28/17 Pregabalin (LYRICA) 200 Mg Cap, 200 MG PO 2-3XD, CAP 12/28/17 Discontinued Scripts Sulfamethoxazole/Trimet 800-160 Mg Tab (BACTRIM DS TABLET) 1 Each Tablet, 1 TAB PO Q12H, #14 TAB Prov:SMOOTH HUERTA [employer] 04/09/18 Methocarbamol (ROBAXIN-750) 750 Mg Tablet, 1-2 TAB PO TID PRN for muscle spasm relief, #30 Prov:ASHOK RAMIREZ DO 12/28/17 Past Medical/Surgical History PAST MEDICAL HISTORY 1. Fibromyalgia. 2. Eosinophilic gastritis. 3. 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 PAST SURGICAL HISTORY 1. Right hemiglossectomy on February 14, 2018. 2. Appendectomy. 3. Hip replacement. 4. Hernia repair. 5. Three left shoulder arthroscopic surgeries. 6. Three left knee arthroscopic surgeries. Reviewed Nurses Notes: Yes Old Medical Records Reviewed: Yes Hx Smoking: Yes Smoking Status: Former Smoker Exposure to Second Hand Smoke?: No Hx Substance Use Disorder: No Hx Alcohol Use: No Constitutional Vital Sign - Last 24 Hours 05/05/18 05/05/18 05/05/18 05/05/18 01:35 01:39 01:40 01:50 Temp 101.1 Pulse ??? 127 120 Resp 15 20 B/P (MAP) 130/95 130/95 (107) Pulse Ox 93 96 O2 Delivery Room Air 05/05/18 05/05/18 05/05/18 05/05/18 02:00 02:20 02:35 02:50 Pulse 109 109 ??? Resp 17 B/P (MAP) 123/85 (98) 121/82 (95) Pulse Ox 91 05/05/18 05/05/18 05/05/18 05/05/18 02:55 03:00 03:10 03:25 Pulse ??? 103 ??? Resp 11 B/P (MAP) 126/79 (95) Pulse Ox 88 05/05/18 05/05/18 05/05/18 05/05/18 03:30 03:40 03:55 04:00 Pulse 98 Resp 9 B/P (MAP) 127/89 (102) 125/79 (94) 119/82 (94) Pulse Ox 95 05/05/18 05/05/18 05/05/18 04:25 04:40 05:00 Temp 98.9 Pulse 92 88 Resp 14 8 B/P (MAP) 124/83 (97) Pulse Ox 95 Physical Exam General Appearance: The patient is alert, has no immediate need for airway protection and no current signs of toxicity. Vital signs stable, mildly tachycardic, temperature 101.4 HEENT: Pupils equal and round no injection. TMs normal, oropharynx with gross erythema, thrush noted on soft palate extending to the tonsillar pillars Respiratory: Chest is non tender, lungs are clear to auscultation. No wheezing or rails Cardiac: regular rate and rhythm, no murmur Gastrointestinal: Abdomen is soft and non tender, no masses, bowel sounds normal. Musculoskeletal: Neck: Neck is supple and non tender. Extremities have full range of motion and are non tender. Skin: There is erythema to the skin of the neck from radiation therapy. It could also be cellulitis. DIFFERENTIAL DIAGNOSIS: After history and physical exam differential diagnosis was considered for adult fever including but not limited to viral syndromes including influenza, urinary tract infection, pneumonia and sepsis. Medical Decision Making Data Points Result Diagram: 05/05/18 0157 05/05/18 0157 Laboratory Hematology Test 05/05/18 01:57 05/05/18 02:48 05/05/18 04:28 Red Blood Count 4.11 M/uL (4.00-5.60) Mean Corpuscular Volume 93.2 fL (80.0-96.0) Mean Corpuscular Hemoglobin 32.1 pg (26.0-33.0) Mean Corpuscular Hemoglobin Concent 34.4 g/dL (32.0-36.0) Red Cell Distribution Width 18.3 % (11.5-14.5) Mean Platelet Volume 7.2 fL (7.2-11.1) Neutrophils (%) (Auto) % (39.4-72.5) Lymphocytes (%) (Auto) % (17.6-49.6) Monocytes (%) (Auto) % (4.1-12.4) Eosinophils (%) (Auto) % (0.4-6.7) Basophils (%) (Auto) % (0.3-1.4) Nucleated RBC Relative Count (auto) /100WBC Neutrophils # (Auto) K/uL (2.0-7.4) Lymphocytes # (Auto) K/uL (1.3-3.6) Monocytes # (Auto) K/uL (0.3-1.0) Eosinophils # (Auto) K/uL (0.0-0.5) Basophils # (Auto) K/uL (0.0-0.1) Nucleated RBC Absolute Count (auto) K/uL Neutrophils % (Manual) 58 % (39.4-72.5) Band Neutrophils % 4 % Lymphocytes % (Manual) 25 % (17.6-49.6) Atypical Lymphocytes % 1 % Monocytes % (Manual) 11 % (4.1-12.4) Eosinophils % (Manual) 0 % (0.4-6.7) Basophils % (Manual) 0 % (0.3-1.4) Metamyelocytes % 1 % Anisocytosis 1+ Peripheral Blood Smear Yes Y/N Sodium Level 133 mmol/L (137-145) Potassium Level 4.2 mmol/L (3.5-5.0) Chloride Level 99 mmol/L (98-107) Carbon Dioxide Level 25 mmol/L (22-30) Blood Urea Nitrogen 25 mg/dl (9-21) Creatinine 0.90 mg/dl (0.66-1.25) Glomerular Filtration Rate Calc > 60.0 Random Glucose 109 mg/dl (75-110) Lactate 1.3 mmol/L (0.7-2.1) Calcium Level 9.2 mg/dl (8.4-10.2) Total Bilirubin 0.5 mg/dl (0.2-1.3) Aspartate Amino Transf (AST/SGOT) 29 U/L (0-35) Alanine Aminotransferase (ALT/SGPT) 49 U/L (0-56) Alkaline Phosphatase 106 U/L (0-126) Total Protein 6.6 g/dl (6.3-8.2) Albumin 3.6 g/dl (3.5-5.0) Influenza Virus Type A (PCR) Negative (NEGATIVE) Influenza Virus Type B (PCR) Negative (NEGATIVE) Group A Streptococcus Screen Negative (NEGATIVE) Urine Color Yellow Urine Clarity Clear Urine pH 6.0 pH (4.8-9.5) Urine Specific Nelson 1.024 Urine Protein Negative mg/dL (NEGATIVE) Urine Glucose (UA) Negative mg/dL (NEGATIVE) Urine Ketones Negative mg/dL (NEGATIVE) Urine Blood Negative (NEGATIVE) Urine Nitrite Negative (NEGATIVE) Urine Bilirubin Negative (NEGATIVE) Urine Urobilinogen 4.0 mg/dL (0.2-1.9) Urine Leukocyte Esterase Negative (NEGATIVE) Urine RBC <1 /HPF (0-2/HPF) Urine WBC 1 /HPF (0-5/HPF) Urine Squamous Epithelial Cells Few /LPF (</=FEW) Urine Bacteria Negative /HPF (NONE-FEW) Urine Mucus None /HPF (NONE-FEW) Chemistry Test 05/05/18 01:57 05/05/18 02:48 05/05/18 04:28 White Blood Count 1.4 k/uL (4.5-11.0) Red Blood Count 4.11 M/uL (4.00-5.60) Hemoglobin 13.2 g/dL (14.0-18.0) Hematocrit 38.3 % (42.0-52.0) Mean Corpuscular Volume 93.2 fL (80.0-96.0) Mean Corpuscular Hemoglobin 32.1 pg (26.0-33.0) Mean Corpuscular Hemoglobin Concent 34.4 g/dL (32.0-36.0) Red Cell Distribution Width 18.3 % (11.5-14.5) Platelet Count 121 K/uL (150-450) Mean Platelet Volume 7.2 fL (7.2-11.1) Neutrophils (%) (Auto) % (39.4-72.5) Lymphocytes (%) (Auto) % (17.6-49.6) Monocytes (%) (Auto) % (4.1-12.4) Eosinophils (%) (Auto) % (0.4-6.7) Basophils (%) (Auto) % (0.3-1.4) Nucleated RBC Relative Count (auto) /100WBC Neutrophils # (Auto) K/uL (2.0-7.4) Lymphocytes # (Auto) K/uL (1.3-3.6) Monocytes # (Auto) K/uL (0.3-1.0) Eosinophils # (Auto) K/uL (0.0-0.5) Basophils # (Auto) K/uL (0.0-0.1) Nucleated RBC Absolute Count (auto) K/uL Neutrophils % (Manual) 58 % (39.4-72.5) Band Neutrophils % 4 % Lymphocytes % (Manual) 25 % (17.6-49.6) Atypical Lymphocytes % 1 % Monocytes % (Manual) 11 % (4.1-12.4) Eosinophils % (Manual) 0 % (0.4-6.7) Basophils % (Manual) 0 % (0.3-1.4) Metamyelocytes % 1 % Anisocytosis 1+ Peripheral Blood Smear Yes Y/N Glomerular Filtration Rate Calc > 60.0 Lactate 1.3 mmol/L (0.7-2.1) Calcium Level 9.2 mg/dl (8.4-10.2) Total Bilirubin 0.5 mg/dl (0.2-1.3) Aspartate Amino Transf (AST/SGOT) 29 U/L (0-35) Alanine Aminotransferase (ALT/SGPT) 49 U/L (0-56) Alkaline Phosphatase 106 U/L (0-126) Total Protein 6.6 g/dl (6.3-8.2) Albumin 3.6 g/dl (3.5-5.0) Influenza Virus Type A (PCR) Negative (NEGATIVE) Influenza Virus Type B (PCR) Negative (NEGATIVE) Group A Streptococcus Screen Negative (NEGATIVE) Urine Color Yellow Urine Clarity Clear Urine pH 6.0 pH (4.8-9.5) Urine Specific Nelson 1.024 Urine Protein Negative mg/dL (NEGATIVE) Urine Glucose (UA) Negative mg/dL (NEGATIVE) Urine Ketones Negative mg/dL (NEGATIVE) Urine Blood Negative (NEGATIVE) Urine Nitrite Negative (NEGATIVE) Urine Bilirubin Negative (NEGATIVE) Urine Urobilinogen 4.0 mg/dL (0.2-1.9) Urine Leukocyte Esterase Negative (NEGATIVE) Urine RBC <1 /HPF (0-2/HPF) Urine WBC 1 /HPF (0-5/HPF) Urine Squamous Epithelial Cells Few /LPF (</=FEW) Urine Bacteria Negative /HPF (NONE-FEW) Urine Mucus None /HPF (NONE-FEW) Urinalysis Test 05/05/18 04:28 Urine Color Yellow Urine Clarity Clear Urine pH 6.0 pH (4.8-9.5) Urine Specific Nelson 1.024 Urine Protein Negative mg/dL (NEGATIVE) Urine Glucose (UA) Negative mg/dL (NEGATIVE) Urine Ketones Negative mg/dL (NEGATIVE) Urine Blood Negative (NEGATIVE) Urine Nitrite Negative (NEGATIVE) Urine Bilirubin Negative (NEGATIVE) Urine Urobilinogen 4.0 mg/dL (0.2-1.9) Urine Leukocyte Esterase Negative (NEGATIVE) Urine RBC <1 /HPF (0-2/HPF) Urine WBC 1 /HPF (0-5/HPF) Urine Squamous Epithelial Cells Few /LPF (</=FEW) Urine Bacteria Negative /HPF (NONE-FEW) Urine Mucus None /HPF (NONE-FEW) Microbiology Microbiology Date/Time Source Procedure Growth Status 05/05/18 02:29 Blood Peripheral Draw Blood Culture - Preliminary NO GROWTH SO FAR, SET LATE. REINCUBATED Resulted 05/05/18 01:57 Blood Peripheral Draw Blood Culture - Preliminary NO GROWTH SO FAR, SET LATE. REINCUBATED Resulted EKG/Imaging Imaging X-ray: Two-view chest x-ray was obtained. I viewed the images myself on the PACS system. My interpretation of the images is: No infiltrate, no effusion, normal mediastinum. The radiologist interpretation had no clinically signific ant variation from this interpretation. ED Course/Re-evaluation Clinical Indication for ER IV: Hydration, IV Access ED Course Patient was admitted to an examination room. H&P was done. The differential diagnoses was considered. On clinical examination. Patient has a fever. He has some upper respiratory symptoms, congestion and coughing in his throat. He's had some sinus drainage. He denies ear pain. He denies exposure to ill contacts. He's had fevers at home to 103 and 102. He had arrival. He has a fever to 101.4. He is immunosuppressed secondary to chemotherapy and radiation treatment. Patient is roberts cultured. Chest x-ray is unremarkable. His white blood cell count is low at 1.4. ANC calculates about at 860. Lactate was 1.3. No suggestions of sepsis. Decision to Disposition Date: May 05, 2018 Decision to Disposition Time: 04:39 Depart Departure Latest Vital Signs Vital Signs Date Time Temp Pulse Resp B/P (MAP) Pulse Ox O2 Delivery O2 Flow Rate FiO2 05/05/18 05:00 98.9 05/05/18 04:40 88 8 124/83 (97) 95 05/05/18 01:39 Room Air Impression: Primary Impression: Fever Additional Impressions: Squamous cell cancer of tongue Pancytopenia due to antineoplastic chemotherapy Oral candidiasis Condition: Improved Disposition: HOME OR SELF-CARE Referrals: ANGEL TENORIO (PCP) New Scripts Hydromorphone Hcl (DILAUDID) 2 Mg Tablet 1-2 TAB PO Q4H PRN for throat cancer pain relief, #15 Prov: ASHOK RAMIREZ DO 05/05/18 Patient Instructions: Fever in Adults (ED) Additional Instructions: No obvious source of acute infection was found, other than your thrush Continue your medication. Fluconazole as prescribed A prescription of Dilaudid was provided for additional pain relief. Follow-up up with your oncology doctor as planned on Sunday. Problem Qualifiers Primary Impression: Fever Fever type: unspecified Qualified Codes: R50.9 - Fever, unspecified ASHOK RAMIREZ DO May 05, 2018 01:38
[2018-05-05] MEDS ORDERED: NS(*) 0.9% 1000 ML BAG 1,000 ML IV ONE ×3 (01:44→03:35)
[2018-05-05 02:13] LABS: PLATELET COUNT, AUTOMATED 121 K/uL (150-450)
[2018-05-05] MEDS ORDERED: HYDROMORPHONE HCL 1 MG/ML SYRINGE IVP ONE ×2 (02:50→03:35)
[2018-05-05] MEDS ORDERED: ONDANSETRON 4 MG/2 ML VIAL IVP ONE (02:50)
[2018-05-05] MEDS ORDERED: HYDR473S9 (02:58)
--- NOTE | 2018-05-05 03:21 | RADIOLOGY IMAGING REPORT ---
FACILITY: [facility] PATIENT NAME: Ryan King : 1980 MR: [id number] V: [id number] EXAM DATE: ORDERING PHYSICIAN: ASHOK RAMIREZ TECHNOLOGIST: Location: [facility] Patient: Ryan King : 1980 Visit/Account:[id number] Date of Sevice: 05/05/2018 CHEST PA AND LAT HISTORY: Fever. COMPARISON: 03/22/2018. FINDINGS: Lines/tubes: None. Lungs/pleura: Negative. Heart: Negative. Mediastinum: Negative. Bony structures/body wall: Negative. IMPRESSION: No acute cardiopulmonary process. Report Dictated By: Roberto Rojo MD at 05/05/2018 3:07 AM Report E-Signed By: Roberto Rojo MD at 05/05/2018 3:09 AM WSN:[id number]
[2018-05-05 04:40] VITALS: BP 124/83
[2018-05-05] MEDS ORDERED: HYDROmorphone 2 MG TAB TH 2 TAB/BOTTLE PO ONE (04:45)
[2018-05-05] MEDS ORDERED: HYDR2TAB74 PO (04:47)
== END 2018-05-05 05:00 | disposition home or self-care (01) ==
LOC: ER 01:55
DX: R50.9 Fever, unspecified (principal); D61.810 Antineoplastic chemotherapy induced pancytopenia; C02.9 Malignant neoplasm of tongue, unspecified; B37.0 Candidal stomatitis
CPT/HCPCS: 36415; 71046; 81001; 83605; 85025; 87040; 87081; 87502; 87880; 96361; 96374; 96375; 96376; 99284; A9270; J1170; J2405; J7030; 82040; 82247; 82310; 82374; 82435; 82565; 82947; 84075; 84132; 84155; 84295; 84450; 84460; 84520

== ENCOUNTER 2018-05-06 08:15 | Outpatient (RCR) | payer BC, OTHER ==
[2018-05-01 08:32] VITALS: BP 128/80
[~2018-05-06 08:15] MED LIST changes: +HYDR473S9
--- NOTE | 2018-05-07 03:27 | ONCOLOGY FOLLOW UP NOTE ---
EVENT DATE: May 06, 2018 CHIEF COMPLAINT Here for consideration of cycle #7 of concurrent chemoradiation. HISTORY OF PRESENT ILLNESS Patient is a 38-year-old male who is seen today for consideration of cycle #7 of weekly cisplatin. He continues on daily radiation. He presents and feels overwhelmingly fatigued. He has significant pain in his mouth, and thrush has returned. He is having trouble drinking milkshakes at this time. He was seen in the emergency room on 05/05/18 with a temperature of 102. He was noted to be neutropenic, but no source of infection was found. He continues with thick phlegm, likely related to radiation. He finds the hydrocodone elixir is not helping at this time. ONCOLOGY HISTORY Patient is a 38-year-old male who presented to his dentist with pain in his right lateral tongue. PET scan on January 31, 2018 did not show any systemic metastases. He underwent right hemiglossectomy on February 14, 2018, which revealed a squamous cell carcinoma with one lymph node positive at level 4 and extensive perineural invasion. The tongue lesion measured 1.8 x 1.6 cm with an SUV of 13.6. He began concurrent chemoradiation with weekly cisplatin on March 25, 2018 and completed 6 cycles on April 29, 2018. MEDICAL HISTORY 1. Fibromyalgia. 2. Eosinophilic gastritis. 3. Squamous cell carcinoma of the tongue. 4. Left upper extremity DVT, April 19, 2018. PAST SURGICAL HISTORY 1. Right hemiglossectomy on February 14, 2018. 2. Appendectomy. 3. Hip replacement. 4. Hernia repair. 5. Three left shoulder arthroscopic surgeries. 6. Three left knee arthroscopic surgeries. FAMILY HISTORY Maternal aunt had breast cancer in her mid 40s. SOCIAL HISTORY Patient is . They have one child. He was working at [employer], but currently is not working. He has a remote history of smoking half a pack a day for three to four years, but quit in 2001. He rarely drinks alcohol and has not used recreational drugs. CURRENT MEDICATIONS 1. Cyclobenzaprine 20 mg daily. 2. Simvastatin 20 mg at bedtime. 3. Robaxin 750 mg two tablets t.i.d. p.r.n. 4. Trazodone 100 mg at bedtime p.r.n. 5. Omeprazole 40 mg daily. 6. Lyrica 200 mg b.i.d. to t.i.d. 7. BuSpar 15 mg b.i.d. 8. Compazine. 9. Zofran. 10. Dexamethasone 4 mg Days 2, 3, and 4 of chemo. 11. Brintellix 10 mg daily. 12. Ativan 0.5 mg every bedtime p.r.n. 13. Triple mix with nystatin. 14. Hydrocodone elixir 7.5-325mg/15mL 15-30mL q 6 h p.r.n. pain. 15. Eliquis 5 mg b.i.d. for two to three weeks. ALLERGIES PENICILLIN, ERYTHROMYCIN, KEFLEX which caused hives. PERCOCET caused memory loss. MORPHINE caused erythema of the skin. REVIEW OF SYSTEMS A 12-point review of systems is performed and is negative except as stated above. PHYSICAL EXAMINATION VITAL SIGNS: Weight 78 kg. BP 113/85, P 93, R 16, temp 98, O2 sat 94%. GENERAL: Patient is a well-developed but ill-appearing male in no acute distress. HEAD: Normocephalic and atraumatic. EYES: Sclerae anicteric. MOUTH: Grade 3 mucositis with continued thrush on lateral sides of tongue and posterior pharynx. NECK: Supple, with skin changes noted due to radiation. No open lesions. LUNGS: Coarse cough, but lungs are clear bilaterally. CARDIOVASCULAR: Heart rate regular, 96 per minute, without murmur, S3 or S4. EXTREMITIES: No edema. Left upper extremity swelling has resolved. NEUROLOGIC: Nonfocal. SKIN: Erythema noted to neck, without open lesions. LABORATORY CBC today reveals a WBC of 1.7, ANC of 1.0, hemoglobin 12.5, hematocrit 36.9, platelets 111,000. CMP is pending. IMPRESSION AND PLAN The patient is a 38-year-old male currently undergoing concurrent chemoradiation with weekly cisplatin for squamous cell carcinoma of the right lateral tongue. Began chemoradiation on 03/25/18. 1. Squamous cell carcinoma of the tongue. Presents for cycle #7 of cisplatin today. However, due to neutropenia, this will be discontinued. He will continue radiation. 2. Thrush. Increased thrush. He has been on fluconazole 200 mg daily with plans to switch to 100 mg daily today. I recommended he increase this back to 200 mg daily. He will be reevaluated next week. 3. Pain. Significantly increased. He has been on hydrocodone elixir, but states it "doesn't work." He was prescribed Dilaudid 2 mg in the emergency room yesterday. He took two tablets but did not feel it was helpful. I have prescribed oxycodone 5 mg, one to two every four hours p.r.n. pain. We reviewed that this is a very difficult pain to control. 4. Left upper extremity deep venous thrombosis. Continue Eliquis. Swelling has for the most part resolved. Will reevaluate with doppler in future. 5. Nausea. No recent vomiting. He continues with both Compazine and Zofran. 6. Weight loss. Patient's weight is actually stable. He has done very well with his weight despite this treatment. 7. Hydration. Recommend hydration daily during this week. 8. Neutropenia. Reviewed neutropenia precautions. He will notify us if he develops further fevers or signs of infection. 9. Follow up in one week for continued care, earlier if there is a problem. LUIS ALBERTO
== END 2018-05-08 13:40 | disposition home or self-care (01) ==
LOC: ONC 08:15
PROVIDERS: ATTEND Radiology Radiation Oncology
DX: Z51.0 Encounter for antineoplastic radiation therapy (principal); C02.9 Malignant neoplasm of tongue, unspecified; C77.0 Secondary and unspecified malignant neoplasm of lymph nodes of head, face and neck; Z87.891 Personal history of nicotine dependence; J02.9 Acute pharyngitis, unspecified; R53.83 Other fatigue
CPT/HCPCS: 77290; 77336; 77386

== ENCOUNTER 2018-05-08 06:50 | Outpatient (RCR) | payer BC | END 2018-05-08 13:35 | disposition home or self-care (01) | LOC: RAON 06:50 | PROVIDERS: ATTEND Radiology Radiation Oncology | DX: Z51.0 Encounter for antineoplastic radiation therapy (principal); C02.9 Malignant neoplasm of tongue, unspecified; C77.0 Secondary and unspecified malignant neoplasm of lymph nodes of head, face and neck; Z87.891 Personal history of nicotine dependence | CPT/HCPCS: 77386 ==

== ENCOUNTER 2018-05-16 08:00 | Outpatient (RCR) | payer BC, OTHER ==
--- NOTE | 2018-03-13 18:16 | ONCOLOGY CONSULTATION ---
EVENT DATE: March 12, 2018 DIAGNOSES 1. 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 Clinically, the tumor size is estimated at approximately 4 cm. Status post right partial glossectomy and right lymph node dissection by Dr. Quach on February 14, 2018. 2. Moderately differentiated squamous cell carcinoma. Tumor was resected, submitting several sections of the oral tongue greater than 2 cm. Tumor demonstrates perineural invasion, extensive. Tumor is metastatic to one of eight level 4 lymph nodes. Remainder of the lymph nodes were negative. Close margins (less than 1 mm at the right mid section). Pathologic stage tumor 2, nodes 1, metastases zero (T2N1M0). HISTORY This is a 37-year-old gentleman who is referred to me by Dr. Quach for radiation therapy recommendations postoperatively. He will be seen by Dr. Gab East for medical oncology opinion later this week. According to the patient, he presented to his dentist with pain along the right lateral tongue with palpable elevation in nodularity. This progressed to the point where the patient could barely speak due to pain with talking. He denied any significant dysphagia, although he did notice a slight change in his voice due to the tongue pain at presentation. He has a remote history of smoking half pack per day for three to four years. He quit smoking in 2001. Rare alcohol use. Patient was evaluated by Dr. Quach on referral. He had a PET/CT scan in [place] on January 31, 2018. That study was notable for a 1.8 x 1.6 cm mass, listed as the right midline invasive tongue with an SUV activity of 13.6. There was significant lymphadenopathy detected at that juncture. No signs of distant tumor metastasis. Patient was advised that he would benefit from surgical resection, possibly to be followed by additional adjuvant therapy. He consented to that option and subsequently underwent right hemiglossectomy on February 14, 2018, at [facility]. The anterior and lateral portion of the tongue was submitted in three portions. Dr. Quach stated that the tumor grossly was 4 cm in largest dimension. First specimen was 3.1 x 2.6 cm, labeled as right anterior tongue. The right mid tongue gross specimen was 3.5 x 2.5 cm. The posterior tongue was 2.2 x 0.8 cm. Additional posterior tongue was submitted with the specimen measuring 3.0 x 1.6 cm. Extensive lymph node dissection was performed on the right side with 69 total lymph nodes removed. Tumor was present in one small focus at a level 4 lymph node, which measured 3 mm. Otherwise, no gurpreet extension. On sectioning the tongue, the tumor size was not list on the anterior submitted specimen. In the mid specimen, it was listed as 1.4 cm, and the posterior sectioning was listed 0.6 cm. Margin was initially positive on the anterior specimen, and an additional specimen was submitted for a clear margin at that location. The margins were close at 1 mm on the right mid section and 5 mm from the right posterior sectioning. Tumor depth was listed at 8.2 mm. Adverse features include moderate grade, lymph node metastasis in the presence of extensive perineural invasion. Postoperatively, the patient is doing fairly well. He was able to come off the pain medicines completely mid portion of last week. He is restarting work today. He does have significant sensitivity over the tongue as well as the right side of his face, which he describes up to the level of the temporalis muscle approximating 5 to 6 cm from the apex of the right ear. Presently, he is able to swallow liquids and solids. He does carry water with him as he needs to rinse his mouth out thoroughly after meals. He also states that he did have baseline xerostomia which relates to several of his medications he has been taking. The patient is seen for consultation approximately four weeks remote from his surgery. Patient has been experiencing some depression and has baseline history of fibromyalgia with diffuse muscle pain. His depression has been worse of late as he has been off his antidepressant medications due to cost. PAST MEDICAL HISTORY 1. 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 2. Depression. 3. Anxiety. 4. Hypertension. 5. Fibromyalgia. 6. Asthma. SURGICAL HISTORY 1. Right hemiglossectomy and neck dissection. 2. Appendectomy. From the [facility] notes, he also listed: 3. Hip replacement. 4. Hernia repair. 5. Left shoulder surgery in 2001. ALLERGIES PENICILLIN, ERYTHROMYCIN, PERCOCET, KEFLEX, and MORPHINE. MEDICATIONS 1. Baclofen. 2. Trazodone. 3. Albuterol inhaler. 4. Robaxin p.r.n. severe muscle spasm. 5. Prevacid. He is not taking Lyrica due to cost and lack of adequate insurance coverage, same for Trintellix for depression, on hold since August. REVIEW OF SYSTEMS Notable for weight loss of 20 pounds in the last three months, fatigue, lack of appetite, difficulty finding words at times, headaches, intermittent cough. He does have joint pain, stiffness, and muscle pain which are diffuse. Occasional reflux. SOCIAL HISTORY The patient is . He works at [employer]. Spouse also works at [employer]. Briefly smoked for four years quarter to one-half pack per day, having quit in 2001. No chewing tobacco. PHYSICAL EXAMINATION VITAL SIGNS: Weight 177. BP 142/91, pulse 81, respirations 16, O2 sat 98%. GENERAL: Alert and fully cooperative. Medium build. HEENT: Notable for postsurgical changes of the oral tongue with recent resection consistent with a hemiglossectomy on the right side. Durable sutures are visualized which extend posteriorly to the back molar. Tongue is sensitive to light palpation, but no significant induration. Floor of mouth was unremarkable. Left oral tongue was unremarkable. Posterior oropharynx was negative for any suspicious lesions. NECK: Left neck was negative for any lymphadenopathy. Right neck reveals a well-healed surgical scar over the sternocleidomastoid muscle. There is sensitivity to light touch which extends over the right neck and up to almost the crown of the scalp on the right side. LUNGS: Clear bilaterally. HEART SOUNDS: Regular. ABDOMEN: Soft. No gross organomegaly, mass, or tenderness. 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 By his clinical history, this lesion grew rapidly over a time course of two months. The patient underwent appropriate preoperative evaluation with a PET/CT scan initially, which we will track for radiation planning purposes. He underwent appropriate surgical resection by Dr. Quach on February 14, 2018. Appears to be recovering on schedule with significant improvement in his pain over the last five days. He appeared to be well counseled regarding the rationale for postoperative radiation therapy to the resection site and regional lymph nodes. I went over the pathology report with him carefully, and we focused on the fact the tumor has multiple adverse features including close margins, perineural invasion which is extensive, and positive level 4 lymph node. We then focused on the fact that the patient has no evidence of distant tumor dissemination at this time. I advised him to undergo a course of radiation therapy which will be delivered with an intensity modulated radiotherapy (IMRT) treatment technique covering the resection site and draining lymphatics, submental lymph nodes, and the right neck. I do not see any strong indication to cover the left neck unless any enlarged lymph nodes are noted on our treatment planning CT scan. Patient will undergo Aquaplast mask fabrication this afternoon and treatment planning CT. He will start the radiation therapy course within the next two weeks. He will see Medical Oncology on of this week with opinion for potential radiosensitization with cisplatin. That consult is scheduled with Dr. Aragon. Patient is also being referred to a psychiatrist for management of his depression. Our patient navigator will see what we can do to help him with several of his medication needs. Medications which were working for the patient for the fibromyalgia and depression are, unfortunately, not on his present insurance plan formulary. Patient appears to be motivated for treatment. He is aware of the fact that we may produce moderate to severe mucositis reaction. Other complications may include xerostomia, taste alteration, temporary hoarseness. His dentition appears to be in good repair, and he is advised to have fluoride treatments twice a year. All questions were answered to the patient's satisfaction in over a 90-minute consultation today. Thank you for the referral and opportunity to participate in this gentleman's care. He would like to try to work throughout the treatment program, and we will make arrangements to treat him in the afternoon to allow him to continue working throughout the treatment program. I will place dose limits on the left- sided parotid gland and submandibular gland to lower the risk of permanent xerostomia. Patient will be monitored closely. MTDD
[2018-03-14 08:55] LABS: PLATELET COUNT, AUTOMATED 335 K/uL (150-450)
== END 2018-06-04 ==
LOC: RAON 08:00
PROVIDERS: ATTEND Radiology Radiation Oncology
DX: Z51.0 Encounter for antineoplastic radiation therapy (principal); C02.9 Malignant neoplasm of tongue, unspecified; C77.9 Secondary and unspecified malignant neoplasm of lymph node, unspecified; F32.9 Major depressive disorder, single episode, unspecified; M79.7 Fibromyalgia; F41.9 Anxiety disorder, unspecified; J45.909 Unspecified asthma, uncomplicated; E78.00 Pure hypercholesterolemia, unspecified; I10 Essential (primary) hypertension
CPT/HCPCS: 36592; 77280; 77290; 77300; 77301; 77334; 77336; 77338; 77386; 82040; 82247; 82310; 82374; 82435; 82565; 82947; 83735; 84075; 84132; 84155; 84295; 84443; 84450; 84460; 84520; 85025; 99202

== ENCOUNTER 2018-05-22 08:15 | Outpatient (RCR) | payer BC ==
--- NOTE | 2018-03-27 09:01 | PT INITIAL EVALUATION ---
MEDICAL DIAGNOSIS: Tongue Cancer TREATMENT DIAGNOSIS: Tongue Cancer DATE OF ONSET: 02/14/18 SUBJECTIVE: Ryan is a 37 year old male presenting to oncology rehabilitation following recent diagnosis and surgical intervention for squamous cell carcinoma of the tongue. Pt underwent R hemiglossectomy on February 14, 2018 with additional removal of 69 cervical lymph nodes on the R side. Since the surgery pt has experienced R jaw pain, headaches, and neck stiffness. Additionally pt has both hypersensitivity and numbness of the R jaw, neck and face. Pt is to start chemotherapy regimen consisting of Cisplatin for 6 weeks with concurrent radiation treatment on the day of evaluation (03/25/18). At this time pt already has neuropathy of the extremities likely related to history of Raynaud's syndrome. Pt's spouse is present for evaluation and education on further side effects of treatment. REHAB PROBLEM LIST: Increased Pain Decreased ROM Decreased Function Decreased ADL's Decreased Mobility PREVIOUS MEDICAL HISTORY: See EMR OCCUPATION: Previously worked at [employer], pt is not working throughout treatment. OBJECTIVE: Pt has an excision on the R side of the neck extending from below the ear to under the jaw. Posture: Pt has forward head posture with significant R shoulder elevation ROM: Cervical ROM: flexion: full no pain, ext: min impairments with stretch anteriorly, L SB: 35, R SB: 52, L rot: 55, R rot: 65 UE ROM: Right shoulder full without pain or restrictions, L shoulder slightly impaired in flexion only secondary to hx of injury. Strength: Shoulder Strength: 5/5 B without pain Palpation: Incision has good mobility on the posterior portion with increasing adhesions towards the jaw line. There are two areas of possible suture rejection on the mid portion and at the very end near the jaw. Pt has no swelling of the face or neck at this time. Mobility: ECOG performance status: grade 1 Other Objective Findings: Modified Head and Neck QOL Instrument: "Moderate" impairments on talking, swallowing, and pain. "A lot" impairments on mouth dryness, and chewing. ASSESSMENT: Ryan shows signs and symptoms consistent with cervical impairment as well as TMJ dysfunction secondary to diagnosis and surgical intervention for R SCC of the tongue with R cervical lymph node removal. Physical therapy is indicated for this patient to address the above listed impairments to improve cervical mobility and function for ADL's as well as to maintain function with ongoing oncological intervention. It is my impression that this patient would also benefit from SECURITY AUDITOR services to address further oral dysfunction. Short Term Goals In 4 weeks pt will improve cervical ROM to full in all directions without pain for improved function with ADL's. In 6 weeks pt will maintain ECOG performance level of grade 2 or better for maintenance of function with ADL's. In 6 weeks pt will maintain cervical ROM to full in all directions for improved function with ADL's. Patient's Goals Improve cervical ROM and decrease pain. PLAN: Patient to be seen for Manual Therapy/STM/MET Strengthening/condition Ice/Heat Range of Motion Spinal Stabilization Ultrasound Stretching Iontophoresis Neuromuscular Re-ed Closed Chain Program Electrical Stim Posture/Body mechanics Gait Trg/Balance Trg Biofeedback Home Exercise Program Mech./Manual Traction Therapeutic Activities 2x/Week for 6 Weeks If you have any questions, comments, or concerns about this report or plan, please contact me at . Thank you, Mitra Finn, PT, DPT, CLT MTDD
--- NOTE | 2018-04-01 10:14 | SLP BEDSIDE SWALLOW EVALUATION ---
CLINICAL DYSPHAGIA ASSESSMENT Physician: Terry Wild Clinician: Jeanette Lowe MS, [facility] Type of Assessment: Clinical Dysphagia Evaluation Patient: Ryan King : [birth year], 37yo Evaluation Date: 04/01/18 BACKGROUND Mr. Ryan King is a 37-year-old male referred for outpatient dysphagia evaluation s/p right hemiglossectomy due to squamous cell carcinoma of the tongue. Hemiglossectomy occurred on February 14, 2018 with additional removal of 69 cervical lymph nodes on the R side. Ryan was evaluated in the cancer center during completion of chemotherapy regimen. He reports significant reduction in lingual range of motion, pocketing of food in the L buccal cavity, R sided mandibular pain and numbness, production of thick secretions, and changes in sense of taste. He states that food often tastes like cotton or aluminum foil. Adam spouse was present for majority of evaluation procedures and education re: interventions for oral dysphagia and potential future side effects of cancer treatment on speech and swallowing. PREVIOUS LEVEL OF FUNCTION: independent with all functions; consuming a regular diet, thin liquids. COGNITION/COMMUNICATION: LOC / Participation: alert, cooperative, asks appropriate questions, verbalizes appropriate suggestions Cognitive-Linguistic Status: Intact. Formal assessment not warranted. Cognitive- Linguistic deficits impact swallow function/safety, or response to therapy: No; no deficits observed. Functional Communication: Patient has functional communication tasks for independence and safety including communication of medical history and perceived signs/symptoms. SPEECH Decreased articulatory precision due to restricted lingual mobility. Specific consonant distortions were noted with production of th and r. Despite speech imprecision and distorted consonant production, Ryan was 100% intelligible in conversation. He reports that speech deficits have improved over time with independent practice at home. VOICE WFL DYSPHAGIA ASSESSMENT Sialorrhea: No Xerostomia: Yes Supplemental Oxygen Use: No. COPD Dx: No Pain with Swallow: No Oropharyngeal Structure and Function: Ryan presents with moderately decreased lingual range of motion with R-sided deviation upon protrusion as a result of R-sided hemiglossectomy. He was able to lateralize tongue to the L side against the inner buccal cavity, but exhibited weakness against resistance. Increased difficulty was noted during attempts to lateralize the tongue to the left on the outer oral cavity. Mandibular deficits were also noted with restricted oral cavity opening and clicking sound with mandibular movement. Ryan reports a long-standing history of temporomandibular joint disorder. He believes this has only changed slightly s/p surgical interventions. He also verbalized history of lock-jaw in the past as a result of attempts to stretch mandibular musculature. Labial function was WNL. Ryan was observed with morning meal, including self-administered PO trials of thin liquids via straw, soft solids, and regular solids. He exhibited somewhat prolonged mastication time and decreased lingual control for bolus manipulation throughout oral cavity. Ryan reports he attempts to chew all foods on the R side in compensation for difficulty with lingual movement to the L. Mild oral scatter and residue noted in L buccal cavity. No cough response, vocal changes, or throat clearing was observed across PO trials. Adequate intraoral pressure and labial seal was generated for administration of thin liquids via straw. ST ASSESSMENT SUMMARY PRASAD: Level 6: modified independence. Aspiration Risk: Mildly elevated 2/2 oral phase dysphagia and decreased control of bolus in oral cavity. Speech Therapy Need Oral stage dysphagia increases risk for future aspiration, pneumonia, discomfort, dehydration, and weight loss. Patient/spousal training /education will be continuously completed. ST will address swallow deficits via compensatory strategy training, oral exercise program, and patient/family education to support tolerance of least restrictive diet with minimized discomfort, aspiration risk, and overall impact on quality of life. RECOMMENDATIONS 1. Speech Therapy: 2x/week, 4weeks. Likely reduction to 1x/week, 2weeks for skill maintenance and generalization of home exercise program. 2. Diet Modifications: Not indicated. Recommend avoidance of problematic foods. PLAN OF CARE Short Term Goals 1. Patient will independently clear oral cavity across 100% of attempts with PO trials of regular solids to decrease oral stasis and improve oral phase efficiency. 2. Patient will improve lingual range of motion with lateralization to L corner of outer labial surface to promote bolus manipulation and oral control. 3. Patient will articulate r in all positions of words at the sentence level with 100% accuracy and min cues. 4. Patient will articulate th in all positions of words at the sentence level with 100% accuracy and min cues Care Home Goals: The patient will demonstrate independent use of aspiration precautions, compensatory techniques, and home exercise program for optimized swallow safety with safe consumption of a regular diet. The patient will demonstrate independent and accurate articulation of all sounds with 90% accuracy during informal conversation. Rehabilitation Prognosis: Good. Strong motivation. High PLOF. Strong spousal support. Thank you for this referral. Please call [phone] Jeanette Lowe M.S., CCC-LABEL PASTER Physician Signature Date [*] MTDD
--- NOTE | 2018-04-29 10:31 | PT PLAN OF CARE ---
Physician: Arie Aragon Patient is being seen: 2x/wk Therapist: Mitra Finn, PT, DPT, CLT & Arabella Aguirre, SPT Medical Diagnosis: Tongue Cancer Treatment Diagnosis: Tongue Cancer Date of Onset: 02/14/18 Date of Initial Evaluation: 03/25/18 Date patient was last seen: 04/29/18 Number of treatments: 10 Number of cancellations/No shows: 1 INTERVENTIONS: Manual Therapy/STM/MET Strengthening/condition Ice/Heat Range of Motion Spinal Stabilization Ultrasound Stretching Iontophoresis Neuromuscular Re-ed Closed Chain Program Electrical Stim Posture/Body mechanics Gait Trg/Balance Trg Biofeedback Home Exercise Program Mech./Manual Traction Therapeutic Activities GOALS: In 4 weeks pt will improve cervical ROM to full in all directions without pain for improved function with ADL's. MET In 6 weeks pt will maintain ECOG performance level of grade 2 or better for maintenance of function with ADL's. MET In 6 weeks pt will maintain cervical ROM to full in all directions for improved function with ADL's. PATIENT'S GOAL: Improve cervical ROM and decrease pain. Status of Patient's Goals: 2/3 Goals Met Patient Compliance: Great Prognosis: Good Reasons for continuing therapy: Ryan shows excellent improvements in cervical ROM despite continued radiation treatment. Mobility and performance status remain high with continued PT and recreational activities when tolerated by patient. Pt is to have his last round of chemo therapy today with radiation continuing for the rest of this week and next week. Pt shows moderate skin degeneration on the R anterior cervical spine to be continually monitored. Additional side effects include fatigue and development of LBP to be accessed at next visit. Further PT is indicated to maintain improvements in cervical mobility as well as functional mobility with ADL's. Posture: Pt has forward head posture with significant R shoulder elevation ROM: Cervical ROM: flexion: full no pain, ext: full no pain, L SB: 53, R SB: 50, L rot: 80, R rot: 80 UE ROM: Right shoulder full without pain or restrictions, L shoulder slightly impaired in flexion only secondary to hx of injury. Strength: Shoulder Strength: 5/5 B without pain Palpation: Incision has good mobility. Pt shows moderate skin degeneration on the R anterior cervical spine. Pt has no swelling of the face or neck at this time. Mobility: ECOG performance status: grade 1 If you have any questions, please feel free to contact me at [phone]. Thank you, Mitra Finn, PT, DPT, CLT Arabella Aguirre, SPT This PT was present for the entire PT session directing the services, making the skilled judgement, and was not engaged in treating another patient or doing another task at the same time as the treatment session. MTDD
--- NOTE | 2018-05-06 12:07 | SLP MODIFIED BARIUM SWALLOW ---
Speech Language Pathology Modified Barium Swallow Evaluation Report Date of Evaluation: 05-03-18 Patient Name: Ryan King Patient : 1980, 38yrs Physician: Dr. Willis Zhou MD Clinician: Angelia Baird M.S., [facility]-ANIMAL HUSBANDMAN BACKGROUND The patient is a 38yr old male underwent a right hemiglossectomy due to squamous cell carcinoma of the tongue on February 14, 2018 with additional removal of 69 cervical lymph nodes on the R side. He is currently receiving Speech Therapy services at [facility] and was referred for an MBS to assess for increased risk of aspiration 2/2: significant reduction in lingual range of motion, pocketing of food in the L buccal cavity, R sided mandibular pain and numbness, production of thick secretions, and changes in sense of taste. Oxygen Supplementation: No Level of Consciousness: Non altered Cognitive/Linguistic: functional for participation in current evaluation Orientation: x3 Language: -expressive: nonaphasic -receptive: nonaphasic Speech: functional to participate in current evaluation Voice function to participate in current evaluation Non-verbal Oral Structure and Function: deficits 2/2 Rside hemiglossectomy (please see initial Speech Therapy assessment for details) Pain with Swallow: Oral pain with some foods (i.e., applesauce) MODIFIED BARIUM SWALLOW In conjunction with radiology, lateral view with trials of the following consistencies: thin barium liquid (carbonated/noncarbonated), barium marked pureed, mechanical soft, and regular food consistencies, and a 1cm barium pill. ORAL STAGE Thin Liquids: no evidence of dysphagia . WNL [place] Thick Liquids: no evidence of dysphagia. WNL. Pureed Foods: no evidence of dysphagia. WNL. Mechanical Soft Foods: pocketing R buccal cavity Compensatory: thin liquid swallow cleared pocketed material Regular Foods: thin liquid swallow cleared pocketed material Compensatory: thin liquid swallow cleared pocketed material PHARYNGEAL STAGE Thin Liquid: flash penetration witnessed in majority of thin liquid trials (5+). Immediately upon penetration on two trials, the patient coughed in response, successfully clearing the airway. With the remainder of penetration events, material was immediately cleared from the airway without cough response. Pureed Food: no evidence of dysphagia. WNL. Mechanical Soft Foods: slowed passage of bolus through the pharynx. Mild residuals on anterior and posterior pharyngeal wall, epiglottic vallecula, and pyriform sinus. Patient cleared with independent 2nd swallow. Compensatory: 2nd swallow Regular Food Consistency: results as with mechanical soft trials. Compensatory: 2nd swallow ESOPHAGEAL STAGE Peristaltic movement appears to be WNL Cervical Esophagus: Materials witnessed clearing from cervical esophagus WNL. Thoracic Esophagus: Materials witnessed clearing from upper/mid/lower thoracic esophagus WNL. JAZZMINE: none witnessed. Laryngopharyngeal Reflux (LPR) none witnessed BARIUM PILL: 1cm taken with thin liquids from cup. No oral, pharyngeal, or esophageal dysphagia witnessed. Penetration/Aspiration Scale*: Thin liquid: Score of 2: Material enters the airway, remains above the vocal folds, and is ejected from the airway. Puree, Soft and Regular solids: Score of 1= Contrast does not enter airway *(Eduink et al. 1996) SUMMARY Mild-Moderate Dysphagia Aspiration Risk: Elevated 2/2 oral and pharyngeal dysphagia. Buccal pocketing, frequent flash penetration of thin liquids, and slowed movement of solids boluses through pharynx. Patient demonstrated an intermittent cough reflex with penetration. All penetrated material was immediately cleared throughout the assessment. 1.Dysphagia Severity Rating Scale (Gramigna, 2006; Oj et. al., 1990): 2; Mild dysphagia: oropharyngeal dysphagia present, which can be managed by specific swallow suggestions (alternated bite sips, small bites/sips, posture modifications: pt reports improve oral stage with occasional head-back positioning) 2. Diet: No need for modification in consistency of diet is indicated at this time. RECOMMENDATIONS Continue with outpatient Speech Therapy services with current established POC. Thank you for this referral. Please call [phone] to contact the ANIMAL HUSBANDMAN. Angelia Baird M.S., [facility]IMAL [facility]USBANDMAN Physician Signature Date MTDD
--- NOTE | 2018-05-15 16:33 | SLP PLAN OF CARE ---
PROGRESS REPORT FOR DYSPHAGIA INTERVENTIONS Physician: Terry Wild Clinician: Jeanette Lowe MS, CCC-DRY MILL OPERATOR Type of Assessment: Clinical Dysphagia Evaluation Patient: Ryan King : [birth year], 37yo Report Date: 05/15/2018 BACKGROUND Mr. Ryan King is a 37-year-old male initially referred for outpatient dysphagia interventions s/p right hemiglossectomy due to squamous cell carcinoma of the tongue. During his initial evaluation, Ryan demonstrated moderately decreased lingual range of motion with R-sided deviation upon protrusion. Lingual weakness was noted bilaterally against resistance with relatively increased difficulty during attempts to lateralize the tongue to the left. Mandibular deficits were also noted with restricted oral cavity opening and clicking sound with mandibular movement. Ryan reports a long-standing history of temporomandibular joint disorder. Oral deficits resulted in prolonged mastication time, decreased lingual control for bolus manipulation, oral scatter, and pocketing in L buccal cavity. Hemiglossectomy also resulted in speech deficits characterized by decreased articulatory precision due to restricted lingual mobility. Specific consonant distortions were noted with production of th and r. Ryan consistently attends scheduled appointments with one treatment encounter missed due to severity of oral pain associated with sores and mucositis. Ryan attends dysphagia treatment sessions in the outpatient clinic and in the cancer center. He also completed a modified barium swallow study due to reports of pharyngeal dysphagia and concern for aspirating thin liquids. Results revealed buccal pocketing, frequent flash penetration of thin liquids, and slowed movement of solids boluses through pharynx. Ryan demonstrated an intermittent cough reflex with penetration. All penetrated material was immediately cleared from laryngeal space throughout the assessment. Ryan has excellent motivation to improve, and consistently completes his home exercise program. He has been progressing well with interventions despite some setbacks associated with pain or sores in oral cavity. POC 1. Patient will independently clear oral cavity across 100% of attempts with PO trials of regular solids to decrease oral stasis and improve oral phase efficiency. Progressing. Pt independently clears 100% of puree, 90% of regular solid textures with min cues for bolus manipulation techniques. Oral clearance most notably restricted by material adhering to hard palate and stasis in L sulci with restricted lingual movement. Pt reports increased ability to clear material from oral cavity during meals at home. Mucositis intermittently impedes participation in PO trials. Pt also began to report difficulty swallowing thin liquids on 04/24 with concerns for aspiration. An MBSS was completed. Use of chin tuck, cough/re-swallow, and double swallow helped to clear penetrated material and pharyngeal residue noted on MBSS. 2. Patient will improve lingual range of motion with lateralization to L corner of outer labial surface to promote bolus manipulation and oral control. MET. Pt able to lateralize tongue to L corner of outer labial surface when not affected by pain from oral sores. Will update goal to better reflect performance and target diverse lingual motion throughout oral cavity. Exercise program has focused on lateralization, protrusion, and retraction. Pt reports consistent completion of exercises at home. 3. Patient will articulate r in all positions of words at the sentence level with 100% accuracy and min cues. MET. Pt articulates r in all positions of words at the conversation level with 100% accuracy and occasional cues. Pt has benefitted from instruction to modify articulatory placement in the setting of hemiglossectomy. Repetitive practice has also improved articulatory precision. 4. Patient will articulate th in all positions of words at the sentence level with 100% accuracy and min cues. MET. Pt articulates th in all positions of words at the conversation level with 100% accuracy and occasional cues. Pt has benefitted from instruction to modify articulatory placement in the setting of hemiglossectomy. Repetitive practice has also improved articulatory precision. UPDATED POC 1. Patient will independently clear oral cavity across 100% of attempts with PO trials of regular solids to decrease oral stasis and improve oral phase efficiency. 2. Patient will improve lingual range of motion with lateralization to outer labial corners and internal oral sulci (bilateral, upper, lower) via independent participation in lingual home exercise program to promote bolus manipulation, oral control, and oral cavity clearance. 3. Patient will utilize compensatory strategies (double swallow, cough/re- swallow, chin tuck) to minimize risk for aspiration of thin liquids during 100% of opportunities with occasional cues. Mcfp Goals: 1. The patient will demonstrate independent use of aspiration precautions, compensatory techniques, and home exercise program for optimized swallow safety with safe consumption of a regular diet. PROGRESSING. 2. The patient will demonstrate independent and accurate articulation of all sounds with 90% accuracy during informal conversation. MET. SUMMARY Ryan has demonstrated high motivation with excellent progress towards achieving mutually established goals for articulation errors and swallowing deficits. Articulation goals have been met and discharged. Ryan has responded well to education regarding the impact of radiation and surgical resection on swallowing function. Lingual range of motion has improved since start of care with functional gains in efficiency of swallow. Progress is intermittently impeded by pain associated with mucositis. Ryan should continue to make great gains with his updated plan of care. RECOMMENDATIONS Ryan should continue to benefit from ST interventions 1x/wk, 4wks. Rehabilitation Prognosis: Good. Strong motivation. High PLOF. Strong spousal support. Thank you for referring this patient to [facility], Speech- Language Pathology. Please call [phone] to contact the DRY MILL OPERATOR. Respectfully, Jeanette Lowe M.S., [facility])-DRY MILL OPERATOR Physician Signature Date [*] MTDD
--- NOTE | 2018-05-22 08:57 | PT PLAN OF CARE ---
Physician: Arie Aragon Patient is being seen: 2x/wk Therapist: Mitra Finn, PT, DPT, CLT & Arabella Aguirre, MICHI Medical Diagnosis: Tongue Cancer Treatment Diagnosis: Tongue Cancer Date of Onset: 02/14/18 Date of Initial Evaluation: 03/25/18 Date patient was last seen: 05/22/18 Number of treatments: 15 Number of cancellations/No shows: 1 INTERVENTIONS: Manual Therapy/STM/MET Strengthening/condition Ice/Heat Range of Motion Spinal Stabilization Ultrasound Stretching Iontophoresis Neuromuscular Re-ed Closed Chain Program Electrical Stim Posture/Body mechanics Gait Trg/Balance Trg Biofeedback Home Exercise Program Mech./Manual Traction Therapeutic Activities GOALS: In 4 weeks pt will improve cervical ROM to full in all directions without pain for improved function with ADL's. MET In 6 weeks pt will maintain ECOG performance level of grade 2 or better for maintenance of function with ADL's. MET In 6 weeks pt will maintain cervical ROM to full in all directions for improved function with ADL's. MET PATIENT'S GOAL: Improve cervical ROM and decrease pain. Status of Patient's Goals: 3/3 Goals Met Patient Compliance: Great Prognosis: Good Reasons for discharge from therapy: Ryan is to discharge from physical therapy due to the completion of 3/3 goals with improvements in cervical ROM and B UE strength. Pt has good skin integrity and good skin mobility at the incision site following radiation treatments. Pt is to continue with hydration treatments throughout the rest of the week. Pt shows good compliance with staying active. Upon discharge, patient is to continue with HEP to maintain overall function with ADL's. Posture: Pt has forward head posture with significant R shoulder elevation ROM: Cervical ROM: flexion: full no pain, ext: full no pain, L SB: 47, R SB: 54, L rot: 70, R rot: 70 UE ROM: Right shoulder full without pain or restrictions. Strength: Shoulder Strength: 5/5 B without pain Palpation: Incision has good mobility. Pt has no swelling of the face or neck at this time. Mobility: ECOG performance status: grade 1 If you have any questions, please feel free to contact me at [phone]. Thank you, Mitra Finn, PT, DPT, CLT Arabella Aguirre, SPT This PT was present for the entire PT session directing the services, making the skilled judgement, and was not engaged in treating another patient or doing another task at the same time as the treatment session. LUIS ALBERTO
== END 2018-05-22 18:00 | disposition home or self-care (01) ==
LOC: PT 08:15
PROVIDERS: ATTEND Internal Medicine Hematology
DX: C02.9 Malignant neoplasm of tongue, unspecified (principal); R68.84 Jaw pain; R51 Headache; M43.6 Torticollis; R20.2 Paresthesia of skin; G62.9 Polyneuropathy, unspecified; I73.00 Raynaud's syndrome without gangrene
CPT/HCPCS: 97162

== ENCOUNTER → 2018-06-19 | Outpatient (REF) | payer BC | LOC: ZZSENDIN 10:29 | PROVIDERS: ATTEND Physician Assistant | DX: R00.0 Tachycardia, unspecified (principal) | CPT/HCPCS: 82040; 82247; 82310; 82374; 82435; 82565; 82947; 84075; 84132; 84155; 84295; 84450; 84460; 84520 ==

== ENCOUNTER → 2018-06-24 | Outpatient (CLI) | payer BC | LOC: US 04:16 | PROVIDERS: ATTEND Physician Assistant | DX: R00.0 Tachycardia, unspecified (principal); R01.1 Cardiac murmur, unspecified | CPT/HCPCS: 93225; 93306 ==

== ENCOUNTER 2018-07-07 08:06 | Emergency (ER) | payer BC ==
--- NOTE | 2018-07-07 08:09 | ER Report ---
History and Physical Time Seen By MD: 08:08 MATTEO/KEREN CHIEF COMPLAINT: Chest pain HISTORY OF PRESENT ILLNESS: Patient is a 38-year-old male with a history complicated with squamous cancer of the throat, prior history of DVT in the arm here with complaints of chest pain starting yesterday, recurring this morning at approximately 7:30 while the patient showering. Patient describes the pain as located in the left chest with no associated shortness of breath. Patient reports that the pain has been constant since time of onset. Denies upper resp iratory symptoms, cough, fevers, chills, nausea, vomiting. Patient also reports having intermittent palpitations, skipped beats of his heart, lightheadedness. Patient has been evaluated by cardiology and has had a Holter monitor, echo. Patient was placed on carvedilol, losartan. Denies prior history of ACS. REVIEW OF SYSTEMS: Constitutional: No fever, no chills. Eyes: No discharge. ENT: No sore throat. Cardiovascular: + left sided chest pain, + palpitations, + racing heart rate. Respiratory: No cough, no shortness of breath. Gastrointestinal: No abdominal pain, no vomiting. Genitourinary: No hematuria. Musculoskeletal: No back pain. Skin: No rashes. Neurological: No headache. + lightheadedness Allergies: Coded Allergies: Penicillins (Verified Allergy, Unknown, HIVES, 04/09/18) cephalexin (Verified Allergy, Unknown, 04/09/18) erythromycin base (Verified Allergy, Unknown, 04/09/18) morphine (Verified Allergy, Unknown, 04/09/18) Home Meds Reported Medications Losartan Potassium (LOSARTAN POTASSIUM) 25 Mg Tablet, 25 MG PO QDAY 07/07/18 Carvedilol (CARVEDILOL) 3.125 Mg Tab, 3.125 MG PO BID, TAB 07/07/18 Simvastatin (SIMVASTATIN) 20 Mg Tablet, 20 MG PO HS, TAB 03/14/18 Cyclobenzaprine Hcl (CYCLOBENZAPRINE HCL) 10 Mg Tablet, 20 MG PO DAILY, #9 TAB 03/14/18 Vortioxetine Hydrobromide (Brintellix) 10 Mg Tablet, 1 TAB PO DAILY 03/13/18 Trazodone Hcl (TRAZODONE HCL) 100 Mg Tablet, 100 MG PO PRN, TAB 12/28/17 Omeprazole (OMEPRAZOLE) 40 Mg Capsule.dr, 40 MG PO QDAY, CAP 12/28/17 Pregabalin (LYRICA) 200 Mg Cap, 200 MG PO 2-3XD, CAP 12/28/17 Discontinued Reported Medications Apixaban (ELIQUIS) 5 Mg Tablet, 5 MG PO Take 10 mg PO BID x 7 days; then 5 mg PO BID x 3 weeks 04/19/18 Hx Smoking: Yes Smoking Status: Former Smoker Exposure to Second Hand Smoke?: No Hx Substance Use Disorder: No Hx Alcohol Use: No Constitutional Vital Sign - Last 24 Hours 07/07/18 07/07/18 07/07/18 07/07/18 08:06 08:10 08:11 08:21 Temp 98.0 Pulse ??? 102 96 Resp 20 B/P (MAP) 149/108 149/108 (122) Pulse Ox 95 97 O2 Delivery Room Air 07/07/18 07/07/18 07/07/18 07/07/18 08:36 08:40 08:50 08:51 Pulse 100 105 Resp 20 B/P (MAP) 143/107 (119) 120/91 (101) Pulse Ox 96 91 07/07/18 07/07/18 07/07/18 07/07/18 08:56 09:06 09:07 09:10 Pulse ??? B/P (MAP) 132/115 (121) 123/97 (106) 119/93 (102) 07/07/18 07/07/18 07/07/18 07/07/18 09:20 09:21 09:30 09:36 Pulse 81 81 Resp 32 B/P (MAP) 121/89 (100) 115/92 (100) Pulse Ox 98 98 07/07/18 07/07/18 07/07/18 07/07/18 09:40 09:45 09:50 10:00 Pulse 79 74 B/P (MAP) 119/91 (100) 123/85 (98) 129/96 (107) Pulse Ox 98 100 07/07/18 07/07/18 07/07/18 07/07/18 10:10 10:15 10:20 10:30 Pulse 74 77 B/P (MAP) 118/95 (103) 124/93 (103) 126/95 (105) Pulse Ox 100 99 1/20/19 07/07/18 07/07/18 07/07/18 10:40 10:45 10:50 11:00 Pulse 88 73 Resp 10 B/P (MAP) 127/92 (104) 135/97 (110) 135/100 (112) Pulse Ox 98 94 07/07/18 07/07/18 07/07/18 07/07/18 11:10 11:15 11:20 11:30 Pulse 77 82 Resp 14 12 B/P (MAP) 136/98 (111) 129/100 (110) 136/95 (109) Pulse Ox 93 94 07/07/18 07/07/18 07/07/18 07/07/18 11:40 11:45 11:50 12:00 Pulse 79 ??? Resp 10 B/P (MAP) 125/96 (106) 132/95 (107) Pulse Ox 95 Intake and Output 07/07/18 07/07/18 07/08/18 15:00 23:00 07:00 Intake Total 1000 ml Balance 1000 ml Physical Exam General Appearance: The patient is alert, has no immediate need for airway protection and no signs of toxicity. Anxious appearing, non toxic Eyes: Pupils equal and round no pallor or injection. ENT, Mouth: Mucous membranes are + dry Respiratory: There are no retractions, lungs are clear to auscultation. Cardiovascular: + regular, tachycardic Gastrointestinal: Abdomen is soft and non tender, no masses, bowel sounds normal. Neurological: No focal neuro deficits Skin: Warm and dry, no rashes. Musculoskeletal: Neck is supple non tender. Extremities are nontender, nonswollen and have full range of motion. DIFFERENTIAL DIAGNOSIS: After history and physical exam differential diagnosis was considered for chest pain including but not limited to myocardial ischemia, pericarditis pulmonary embolus, chest wall pain, pleural inflammation and pulmonary infectious causes. Medical Decision Making Data Points Result Diagram: 07/07/18 0825 07/07/18 0825 Laboratory Hematology Test 07/07/18 08:25 07/07/18 10:49 Red Blood Count 4.98 M/uL (4.00-5.60) Mean Corpuscular Volume 101.4 fL (80.0-96.0) Mean Corpuscular Hemoglobin 32.5 pg (26.0-33.0) Mean Corpuscular Hemoglobin Concent 32.0 g/dL (32.0-36.0) Red Cell Distribution Width 16.9 % (11.5-14.5) Mean Platelet Volume 7.0 fL (7.2-11.1) Neutrophils (%) (Auto) 65.0 % (39.4-72.5) Lymphocytes (%) (Auto) 21.7 % (17.6-49.6) Monocytes (%) (Auto) 8.5 % (4.1-12.4) Eosinophils (%) (Auto) 3.5 % (0.4-6.7) Basophils (%) (Auto) 1.3 % (0.3-1.4) Nucleated RBC Relative Count (auto) 0.1 /100WBC Neutrophils # (Auto) 2.9 K/uL (2.0-7.4) Lymphocytes # (Auto) 1.0 K/uL (1.3-3.6) Monocytes # (Auto) 0.4 K/uL (0.3-1.0) Eosinophils # (Auto) 0.2 K/uL (0.0-0.5) Basophils # (Auto) 0.1 K/uL (0.0-0.1) Nucleated RBC Absolute Count (auto) 0.01 K/uL D-Dimer Quantitative (PE/DVT) < 0.27 ug/ml (0-0.50) Sodium Level 139 mmol/L (137-145) Potassium Level 4.2 mmol/L (3.5-5.0) Chloride Level 102 mmol/L (98-107) Carbon Dioxide Level 28 mmol/L (22-30) Blood Urea Nitrogen 13 mg/dl (9-21) Creatinine 1.00 mg/dl (0.66-1.25) Glomerular Filtration Rate Calc > 60.0 Random Glucose 113 mg/dl (75-110) Calcium Level 9.6 mg/dl (8.4-10.2) Total Bilirubin 1.6 mg/dl (0.2-1.3) Aspartate Amino Transf (AST/SGOT) 44 U/L (0-35) Alanine Aminotransferase (ALT/SGPT) 72 U/L (0-56) Alkaline Phosphatase 94 U/L (0-126) Total Protein 7.2 g/dl (6.3-8.2) Albumin 4.1 g/dl (3.5-5.0) Troponin I < 0.012 ng/ml Chemistry Test 07/07/18 08:25 07/07/18 10:49 White Blood Count 4.5 k/uL (4.5-11.0) Red Blood Count 4.98 M/uL (4.00-5.60) Hemoglobin 16.2 g/dL (14.0-18.0) Hematocrit 50.5 % (42.0-52.0) Mean Corpuscular Volume 101.4 fL (80.0-96.0) Mean Corpuscular Hemoglobin 32.5 pg (26.0-33.0) Mean Corpuscular Hemoglobin Concent 32.0 g/dL (32.0-36.0) Red Cell Distribution Width 16.9 % (11.5-14.5) Platelet Count 218 K/uL (150-450) Mean Platelet Volume 7.0 fL (7.2-11.1) Neutrophils (%) (Auto) 65.0 % (39.4-72.5) Lymphocytes (%) (Auto) 21.7 % (17.6-49.6) Monocytes (%) (Auto) 8.5 % (4.1-12.4) Eosinophils (%) (Auto) 3.5 % (0.4-6.7) Basophils (%) (Auto) 1.3 % (0.3-1.4) Nucleated RBC Relative Count (auto) 0.1 /100WBC Neutrophils # (Auto) 2.9 K/uL (2.0-7.4) Lymphocytes # (Auto) 1.0 K/uL (1.3-3.6) Monocytes # (Auto) 0.4 K/uL (0.3-1.0) Eosinophils # (Auto) 0.2 K/uL (0.0-0.5) Basophils # (Auto) 0.1 K/uL (0.0-0.1) Nucleated RBC Absolute Count (auto) 0.01 K/uL D-Dimer Quantitative (PE/DVT) < 0.27 ug/ml (0-0.50) Glomerular Filtration Rate Calc > 60.0 Calcium Level 9.6 mg/dl (8.4-10.2) Total Bilirubin 1.6 mg/dl (0.2-1.3) Aspartate Amino Transf (AST/SGOT) 44 U/L (0-35) Alanine Aminotransferase (ALT/SGPT) 72 U/L (0-56) Alkaline Phosphatase 94 U/L (0-126) Total Protein 7.2 g/dl (6.3-8.2) Albumin 4.1 g/dl (3.5-5.0) Troponin I < 0.012 ng/ml Coagulation Test 07/07/18 08:25 D-Dimer Quantitative (PE/DVT) < 0.27 ug/ml EKG/Imaging EKG Interpretation 12 lead EKG: Normal sinus rhythm, ventricular rate 94, QTC 425, no ischemic changes or arrhythmias present Rhythm: normal sinus rhythm [place]: normal QRS: normal ST segments: normal Monitor Interpretation: Normal Sinus Rhythm Imaging Location: [facility] Patient: Ryan King : 1980 Visit/Account:[id number] Date of Sevice: 07/07/2018 Exam type: CHEST PA LAT History: Chest Pain Comparison: 05/05/2018. Findings: Both lungs are well-expanded and clear. There is no focal consolidation, pleural effusion or pneumothorax. Heart size is normal. The osseous structures demonstrate a mild scoliosis. IMPRESSION: 1. No acute cardiopulmonary disease. ED Course/Re-evaluation ED Course Patient is a 38-year-old male here with complaints of chest pain which started yesterday, recurred this morning patient showering approximate 7:30. Patient has been evaluated by cardiology in the outpatient setting, echo, Holter monitor were completed and patient was placed on carvedilol, losartan. Patient doesn't prior history of DVT likely caused by PICC line while being treated with chemotherapy for squamous cell carcinoma of the throat. D-dimer was negative. IV fluids, nitroglycerin, aspirin were administered. EKG showed normal sinus rhythm with no ischemic changes. Two set troponins were negative. Chest x-ray showed no acute findings. Close PCP follow-up recommended possible need for further cardiology evaluation in the outpatient setting. Return precautions provided. Decision to Disposition Date: Jul 07, 2018 Decision to Disposition Time: 12:45 Depart Departure Latest Vital Signs Vital Signs Date Time Temp Pulse Resp B/P (MAP) Pulse Ox O2 Delivery O2 Flow Rate FiO2 07/07/18 12:00 ??? 07/07/18 11:50 132/95 (107) 1/20/19 11:45 10 95 07/07/18 08:10 98.0 Room Air Impression: Primary Impression: Chest pain Condition: Improved Disposition: HOME OR SELF-CARE Referrals: JANIE AKHTAR PA-C (PCP) Patient Instructions: Chest Pain (DC) Additional Instructions: Please follow up closely with your geodetic survey director in the next 24-48 hours. Please return promptly if you develop recurrent or worsening symptoms, difficulty breathing, fevers or chills, back pain. IDA AGUIRRE DO Jul 07, 2018 08:08
[2018-07-07] MEDS ORDERED: LOSA25TA57 PO (08:21)
[2018-07-07] MEDS ORDERED: CAR3.125 PO (08:21)
[2018-07-07] MEDS ORDERED: ASPIRIN 81 MG CHEW PO ONE (08:30)
[2018-07-07] MEDS ORDERED: KETOROLAC 30 MG/ML VIAL IVP ONE (08:30)
[2018-07-07] MEDS ORDERED: fentaNYL CITR 100 MCG/2 ML AMP IVP ONE (08:30)
[2018-07-07] MEDS ORDERED: NS(*) 0.9% 1000 ML BAG 1,000 ML IV ONE (08:30)
--- NOTE | 2018-07-07 08:35 | EKG ---
FACILITY: [facility] PATIENT NAME: DARIEL CAMPOS : [id number] MR: [id number] V: [id number] EXAM DATE: ORDERING PHYSICIAN: IDA AGUIRRE TECHNOLOGIST: EDI Velarde Reason : CARDIAC Blood Pressure : / mmHG Vent. Rate : 094 BPM Atrial Rate : 094 BPM P-R Int : 146 ms QRS Dur : 080 ms QT Int : 340 ms P-R-T Axes : 083 049 077 degrees QTc Int : 425 ms Normal sinus rhythm Nonspecific T wave abnormality Abnormal ECG No previous ECGs available Confirmed by Jhonny Tinajero ([id number]) on 07/07/2018 1:58:41 PM Referred By: FLOWER Confirmed By:Jhonny Park
[2018-07-07] MEDS: NITROGLYCERIN 0.4 MG SUBL SL SCH ×2 (08:41→08:55)
[2018-07-07 08:45] LABS: PLATELET COUNT, AUTOMATED 218 K/uL (150-450)
--- NOTE | 2018-07-07 09:21 | RADIOLOGY IMAGING REPORT ---
FACILITY: [facility] PATIENT NAME: Ryan King : 1980 MR: [id number] V: [id number] EXAM DATE: ORDERING PHYSICIAN: IDA AGUIRRE TECHNOLOGIST: Location: [facility] [place] Patient: Ryan King : 1980 Visit/Account:[id number] Date of Sevice: 07/07/2018 Exam type: CHEST PA LAT History: Chest Pain Comparison: 05/05/2018. Findings: Both lungs are well-expanded and clear. There is no focal consolidation, pleural effusion or pneumoth orax. Heart size is normal. The osseous structures demonstrate a mild scoliosis. IMPRESSION: 1. No acute cardiopulmonary disease. Report Dictated By: Bret William MD at 07/07/2018 9:15 AM Report E-Signed By: Bret William MD at 07/07/2018 9:16 AM WSN:[id number]
[2018-07-07 11:50] VITALS: BP 132/95
== END 2018-07-07 12:58 | disposition home or self-care (01) ==
LOC: ER 08:21
DX: R07.9 Chest pain, unspecified (principal)
CPT/HCPCS: 36415; 71046; 84484; 85025; 85379; 93005; 96361; 96374; 96375; 99284; J1885; J3010; J7030; 82040; 82247; 82310; 82374; 82435; 82565; 82947; 84075; 84132; 84155; 84295; 84450; 84460; 84520

== ENCOUNTER → 2018-07-30 | Outpatient (CLI) | payer BC ==
[~2018-07-30] MED LIST changes: +CAR3.125 PO; +LOSA25TA57 PO
--- NOTE | 2018-07-30 08:55 | RADIOLOGY IMAGING REPORT ---
FACILITY: [facility] - [place] PATIENT NAME: Ryan King : 1980 MR: [id number] V: [id number] EXAM DATE: ORDERING PHYSICIAN: LIZBET MISHRA TECHNOLOGIST: [place] [facility] [place]: Ryan King : 1980 Visit/Account:[id number] Date of Sevice: 07/30/2018 CHEST PA LAT Indication: Tachycardia, shortness of breath for 2 months. Comparison: Chest x-ray 07/07/2018 Findings: Lungs: Clear. Mediastinum/pulmonary vasculature: Heart size and pulmonary vasculature are normal. Bones/soft tissues: Normal. IMPRESSION: Clear lungs. Report Dictated By: Bryan Kumar at 07/30/2018 8:50 AM Report E-Signed By: Bryan Kumar at 07/30/2018 8:50 AM WSN:[id number]
== END ==
LOC: RAD 07:53
PROVIDERS: ATTEND Internal Medicine Cardiovascular Disease
DX: I25.10 Atherosclerotic heart disease of native coronary artery without angina pectoris (principal); R00.0 Tachycardia, unspecified; R07.2 Precordial pain; R01.1 Cardiac murmur, unspecified
CPT/HCPCS: 36415; 71046; 82310; 82374; 82435; 82565; 82947; 84132; 84295; 84520; 85027; 85610

== ENCOUNTER 2018-08-08 08:31 | Outpatient (RCR) | payer BC ==
[2018-06-12 08:58] VITALS: BP 128/89
[2018-06-12 09:08] LABS: PLATELET COUNT, AUTOMATED 274 K/uL (150-450)
[2018-06-13 08:21] VITALS: BP 129/87
--- NOTE | 2018-06-14 10:28 | ONCOLOGY FOLLOW UP NOTE ---
EVENT DATE: June 13, 2018 CHIEF COMPLAINT Followup for head and neck cancer. HISTORY OF PRESENT ILLNESS Patient is a 38-year-old male who is seen today as a work-in. He completed his concurrent chemoradiation in April 2018. Since that time he has been improving overall. He is eating well and his weight is very slowly increasing. Today, he presents with complaints of a tender lymph node on the right that has been present for approximately two weeks. He does have continued fatigue. He is mildly tachycardic. He has an appointment with Dr. Nelson tomorrow. He also wonders if his thrush has returned. ONCOLOGY HISTORY Patient is a 38-year-old male who presented to his dentist with pain in his right lateral tongue. PET scan on January 31, 2018 did not show any systemic metastases. He underwent right hemiglossectomy on February 14, 2018, which revealed a squamous cell carcinoma with one lymph node positive at level 4 and extensive perineural invasion. The tongue lesion measured 1.8 x 1.6 cm with an SUV of 13.6. He began concurrent chemoradiation with weekly cisplatin on March 25, 2018 and completed 6 cycles on April 29, 2018. Completed radiation therapy on 06/15/2018. MEDICAL HISTORY 1. Fibromyalgia. 2. Eosinophilic gastritis. 3. Squamous cell carcinoma of the tongue. 4. Left upper extremity DVT, April 19, 2018. PAST SURGICAL HISTORY 1. Right hemiglossectomy on February 14, 2018. 2. Appendectomy. 3. Hip replacement. 4. Hernia repair. 5. Three left shoulder arthroscopic surgeries. 6. Three left knee arthroscopic surgeries. FAMILY HISTORY Maternal aunt had breast cancer in her mid 40s. SOCIAL HISTORY Patient is . They have one child. He was working at [employer], but currently is not working. He has a remote history of smoking half a pack a day for three to four years, but quit in 2001. He rarely drinks alcohol and has not used recreational drugs. CURRENT MEDICATIONS 1. Cyclobenzaprine 20 mg daily. 2. Simvastatin 20 mg at bedtime. 3. Trazodone 100 mg at bedtime p.r.n. 4. Omeprazole 40 mg daily. 5. Lyrica 200 mg b.i.d. to t.i.d. 6. Brintellix 10 mg daily. ALLERGIES PENICILLIN, ERYTHROMYCIN, KEFLEX which caused hives. PERCOCET caused memory loss. MORPHINE caused erythema of the skin. REVIEW OF SYSTEMS A 12-point review of systems is performed and is negative except as stated above. PHYSICAL EXAMINATION VITAL SIGNS: Weight 73 kg. BP 127/87, P 100, R 16, temp 97.0, O2 sat 97%. GENERAL: Patient is a well-developed, well-nourished male in no acute distress. HEAD: Normocephalic, atraumatic. Swelling noted on the right side of his face. EYES: Sclerae anicteric. MOUTH: Moist mucous membranes. There is some mild white coating on his tongue but no evidence of acute thrush. Previous ulceration has now healed. NECK: Supple. He does have a palpable cervical node, approximately 1 cm, that is somewhat tender. No other palpable adenopathy. LUNGS: Clear bilaterally. CARDIOVASCULAR: Heart rate regular, mildly tachycardic, 100 per minute. ABDOMEN: Soft, nontender with active bowel sounds. EXTREMITIES: No edema. NEUROLOGIC: Nonfocal. LABORATORY No lab today. IMPRESSION AND PLAN The patient is a 38-year-old male diagnosed with squamous cell carcinoma of the tongue, locally advanced with positive lymph node. Completed concurrent chemoradiation with weekly cisplatin from March 25, 2018 through May 16, 2018. 1. Squamous cell carcinoma of the tongue. Patient feels is he slowly recovering from the previous chemoradiation, although does continue with fatigue. He has tried to remain as active as possible. 2. Adenopathy. Patient presents today with a two week history of a tender right cervical lymph node as well as some mild swelling on the right side of his face. No other palpable adenopathy. I have reviewed this with Dr. Aragon. He will be treated with Bactrim DS one p.o. b.i.d. for ten days. He is instructed to notify us if he does not see improvement within the next few days. 3. Mucositis, for the most part resolved. He does have some thick white coating on his tongue but no evidence of acute thrush. He will monitor this, especially with the antibiotics. 4. Tachycardia, mildly tachycardic. He has an appointment to see Dr. Nelson tomorrow. 5. Weight loss. Patient's weight is very slowly increasing. He is eating well and having no difficulty swallowing. 6. Left upper extremity deep venous thrombosis. This was related to his PICC line. He received Eliquis for several weeks but this has now resolved. He has no further swelling. 7. Followup with Dr. Aragon. He will undergo CT scan prior to that visit. LUIS ALBERTO
[2018-06-20 08:59] VITALS: BP 141/96
--- NOTE | 2018-06-21 16:56 | ONCOLOGY FOLLOW UP NOTE ---
EVENT DATE: June 20, 2018 CHIEF COMPLAINT Followup for head and neck cancer. HISTORY OF PRESENT ILLNESS Patient is a 38-year-old male who was seen today in followup. He was seen last week and had developed a tender lymph node on the right with some swelling noted on his face. He was prescribed Bactrim DS one b.i.d. for 10 days, but felt that the swelling had not improved. He continues with fatigue. He has seen Dr. Nelson and will undergo echocardiogram as well as Holter monitor for tachycardia. ONCOLOGY HISTORY Patient is a 38-year-old male who presented to his dentist with pain in his right lateral tongue. PET scan on January 31, 2018, did not show any systemic metastases. He underwent right hemiglossectomy on February 14, 2018, which revealed a squamous cell carcinoma with one lymph node positive at level 4 and extensive perineural invasion. The tongue lesion measured 1.8 x 1.6 cm with an SUV of 13.6. He began concurrent chemoradiation with weekly cisplatin on March 25, 2018, and completed six cycles on April 29, 2018. Completed radiation therapy on 06/15/2018. MEDICAL HISTORY 1. Fibromyalgia. 2. Eosinophilic gastritis. 3. Squamous cell carcinoma of the tongue. 4. Left upper extremity DVT, April 19, 2018. PAST SURGICAL HISTORY 1. Right hemiglossectomy on February 14, 2018. 2. Appendectomy. 3. Hip replacement. 4. Hernia repair. 5. Three left shoulder arthroscopic surgeries. 6. Three left knee arthroscopic surgeries. FAMILY HISTORY Maternal aunt had breast cancer in her mid 40s. SOCIAL HISTORY Patient is . They have one child. He was working at [employer], but currently is not working. He has a remote history of smoking half a pack a day for three to four years, but quit in 2001. He rarely drinks alcohol and has not used recreational drugs. CURRENT MEDICATIONS 1. Cyclobenzaprine 20 mg daily. 2. Simvastatin 20 mg at bedtime. 3. Trazodone 100 mg at bedtime p.r.n. 4. Omeprazole 40 mg daily. 5. Lyrica 200 mg b.i.d. to t.i.d. 6. Brintellix 10 mg daily. ALLERGIES PENICILLIN, ERYTHROMYCIN, KEFLEX which caused hives. PERCOCET caused memory loss. MORPHINE caused erythema of the skin. REVIEW OF SYSTEMS A 12-point review of systems is performed and is negative except as stated above. PHYSICAL EXAMINATION VITAL SIGNS: Blood pressure 141/96, pulse 92, respirations 16, temp 97.6, O2 sat 97%. GENERAL: Patient is a well-developed, well-nourished male in no acute distress. He does appear fatigued. HEAD: Normocephalic, atraumatic. Mild swelling noted on the right side of his face. EYES: Sclerae anicteric. MOUTH: Moist mucous membranes. No evidence of thrush. Previous ulceration has healed. NECK: Supple. Ongoing palpable cervical node, now softer, somewhat tender. No other palpable adenopathy. LUNGS: Clear bilaterally. CARDIOVASCULAR: Heart rate regular, 92 per minute, without murmur, S3, or S4. EXTREMITIES: No edema. NEUROLOGIC: Nonfocal. LABORATORY No lab today. IMPRESSION The patient is a 38-year-old male diagnosed with squamous cell carcinoma of the tongue, locally advanced, with positive lymph node. Completed concurrent chemoradiation with weekly cisplatin from March 25, 2018, through May 16, 2018. PLAN 1. Squamous cell carcinoma of the tongue. Patient continues to recover from his previous chemoradiation. He does have some fatigue, but has tried to remain as active as possible. 2. Adenopathy/cellulitis. Presents today with continued symptoms. On exam, this somewhat improved, although he still has some mild swelling on the right side of his face as well as a palpable tender right cervical node. I have reviewed this with Dr. Aragon. At this time, he will be treated with Levaquin 500 mg daily for 10 days. If no improvement is noted, will consider CT of the neck. 3. Mucositis. Now resolved. Mouth continues to be intermittently dry, but he is managing this with water. 4. Tachycardia. This has been intermittent. He also is hypertensive. He is meeting with Dr. Nelson, and an echocardiogram and Holter monitor will be ordered. 5. Left upper extremity deep venous thrombosis. This was related to his peripherally inserted center catheter line. He received Eliquis for several weeks, but this has resolved. 6. Follow up with Dr. Aragon on 08/08/18. He will undergo CT scan prior to that visit if not done before then. [facility] [place]
[2018-06-28 08:25] VITALS: BP 144/97
--- NOTE | 2018-06-28 12:56 | ONCOLOGY FOLLOW UP NOTE ---
EVENT DATE: June 28, 2018 CHIEF COMPLAINT Followup for head and neck cancer. HISTORY OF PRESENT ILLNESS Patient is a 38-year-old male who is seen today in followup. He has been seen twice in June for right sided adenopathy with facial cellulitis. He was treated with Bactrim followed by Joselyn. Symptoms today have improved significantly and for the most part have resolved. He recently has seen Dr. Nelson regarding tachycardia. He relates that they have done an EKG and an echocardiogram and he believes he may have had "either a heart attack or atrial fibrillation". He has an appointment in [place] to see a communication clerk on July 04, 2018. Otherwise, he denies any complaints. He is having no issues with dysphagia and is finding he is able to eat more foods. He also complains of intermittent right hip pain, longstanding (status post replacement). ONCOLOGY HISTORY Patient is a 38-year-old male who presented to his dentist with pain in his right lateral tongue. PET scan on January 31, 2018, did not show any systemic metastases. He underwent right hemiglossectomy on February 14, 2018, which revealed a squamous cell carcinoma with one lymph node positive at level 4 and extensive perineural invasion. The tongue lesion measured 1.8 x 1.6 cm with an SUV of 13.6. He began concurrent chemoradiation with weekly cisplatin on March 25, 2018, and completed six cycles on April 29, 2018. Completed radiation therapy on 06/15/2018. MEDICAL HISTORY 1. Fibromyalgia. 2. Eosinophilic gastritis. 3. Squamous cell carcinoma of the tongue. 4. Left upper extremity DVT, April 19, 2018. PAST SURGICAL HISTORY 1. Right hemiglossectomy on February 14, 2018. 2. Appendectomy. 3. Hip replacement. 4. Hernia repair. 5. Three left shoulder arthroscopic surgeries. 6. Three left knee arthroscopic surgeries. FAMILY HISTORY Maternal aunt had breast cancer in her mid 40s. SOCIAL HISTORY Patient is . They have one child. He was working at [employer], but currently is not working. He has a remote history of smoking half a pack a day for three to four years, but quit in 2001. He rarely drinks alcohol and has not used recreational drugs. CURRENT MEDICATIONS 1. Cyclobenzaprine 20 mg daily. 2. Simvastatin 20 mg at bedtime. 3. Trazodone 100 mg at bedtime p.r.n. 4. Omeprazole 40 mg daily. 5. Lyrica 200 mg b.i.d. to t.i.d. 6. Brintellix 10 mg daily. ALLERGIES PENICILLIN, ERYTHROMYCIN, KEFLEX which caused hives. PERCOCET caused memory loss. MORPHINE caused erythema of the skin. REVIEW OF SYSTEMS A 12-point review of systems is performed and is negative except as stated above. PHYSICAL EXAMINATION VITAL SIGNS: Weight 75.5 kg, BP 144/97, P 100, R 16, temperature 97.4, O2 sat 96%. GENERAL: Patient is a well-developed, well-nourished male in no acute distress. HEAD: Normocephalic, atraumatic. Facial swelling has now resolved. EYES: Sclerae anicteric. MOUTH: Slightly dry mucous membranes. No lesions. NECK: Supple. No palpable adenopathy. LUNGS: Clear bilaterally. CARDIOVASCULAR: Heart rate regular, 100 per minute with occasional skipped beat. EXTREMITIES: No edema. He ambulates using a cane. NEUROLOGIC: Nonfocal. LABORATORY No lab. IMPRESSION AND PLAN The patient is a 38-year-old male diagnosed with squamous cell carcinoma of the tongue, locally advanced, with positive lymph node. Completed concurrent chemoradiation with weekly cisplatin from March 25, 2018, through May 16, 2018. 1. Squamous cell carcinoma of the tongue. Patient continues to recover from chemoradiation. He is now eating better and denies any issues with dysphagia. He will undergo CT scan prior to his visit at the end of July 2018. 2. Adenopathy/cellulitis. Patient has completed 10 day course of Levaquin. These symptoms have now resolved. 3. Cardiac. Patient will be seeing a communication clerk in [place] on July 04, 2018. He believes he may have had either a heart attack or be developing atrial fibrillation. Echocardiogram, by Dr. Nelson, showed a slightly decreased ejection fraction to 40-45%. 4. Follow up with Dr. Aragon on August 08, 2018. He will undergo CT scan prior to that visit. [facility]
--- NOTE | 2018-07-02 14:23 | NUR ---
LILIBETH rec'd information that patient was approved for the [employer] Patient Assistance Program for Lyrica through 06/17/19. An order was received in the mail today. LILIBETH notified patient to coal picker the medication.
[2018-08-05 08:58] VITALS: BP 156/96
[2018-08-05 09:26] LABS: PLATELET COUNT, AUTOMATED 202 K/uL (150-450)
--- NOTE | 2018-08-05 10:13 | RADIOLOGY IMAGING REPORT ---
FACILITY: [facility] - [place] PATIENT NAME: Ryan King : 1980 MR: [id number] V: [id number] EXAM DATE: ORDERING PHYSICIAN: FLORENTIN JOHNSON TECHNOLOGIST: [facility] Patient: Ryan King : 1980 Visit/Account:[id number] Date of Sevice: 08/05/2018 Study: CT scan of the brain with intravenous contrast. Contrast: 75ml isovue 370 Indication: History of tongue cancer Comparison study:None Technique: Multiple axial images were obtained through the brain with the use of intravenous contrast . One of the following dose optimization techniques was utilized in the performance of this exam: Autom ated exposure control; adjustment of the mA and/or kV according to the patient's size; or use of an i terative reconstruction technique. Specific details can be referenced in the facility's radiology C T exam operational policy. The examination demonstrates no evidence of acute intracranial hemorrhage. There is no evidence of ex tra-axial collection or hydrocephalus. There is no abnormal density identified within the brain parenchyma. There is no evidence of intracranial space-occupying lesion. There is no evidence of disruption of the peripheral alexander-white junction. There is no abnormal contrast enhancement identified. The bony structures are unremarkable. IMPRESSION:Unremarkable CT scan of the brain with contrast. Report Dictated By: Sid Dominguez at 08/05/2018 10:06 AM Report E-Signed By: Sid Dominguez at 08/05/2018 10:10 AM WSN:[email or web address]
--- NOTE | 2018-08-05 11:05 | RADIOLOGY IMAGING REPORT ---
FACILITY: [facility] - [place] PATIENT NAME: Ryan King : 1980 MR: [id number] V: [id number] EXAM DATE: ORDERING PHYSICIAN: FLORENTIN JOHNSON TECHNOLOGIST: Location: [facility] [place] Patient: Ryan King : 1980 Visit/Account:[id number] Date of Sevice: 08/05/2018 Study: CT scan of the neck with intravenous contrast Indication: History of tongue malignancy Contrast utilized: 75 mL Isovue 370 Technique: Multiple axial images were obtained through the neck following the intravenous administrat ion of iodinated contrast. Coronal and sagittal two-dimensional reconstructions were made from the original data set. One of the following dose optimization techniques was utilized in the performance of this exam: Autom ated exposure control; adjustment of the mA and/or kV according to the patient's size; or use of an i terative reconstruction technique. Specific details can be referenced in the facility's radiology C T exam operational policy. The examination demonstrates the presence of induration of the subcutaneous soft tissues in the subme ntal region bilaterally. This is likely the sequela of previous radiation therapy. There is thickening along the right aspect of the platysma muscle anterior to the larynx. There is no evidence of abnormality of the tongue base or floor of mouth. The thyroid, submandibular, and parotid glands are unremarkable in appearance. There is no evidence of significant cervical adenopathy. The airway is unremarkable. The visualized mediastinum and lung apices are unremarkable. There is no evidence of significant vascular abnormality. IMPRESSION: Induration of the subcutaneous soft tissues in the submental region bilaterally likely du e to previous radiation therapy. There is unilateral thickening of the right aspect of the platysma m uscle at the level of the larynx. There is no evidence of significant cervical adenopathy. There is no evidence of significant abnormal ity of the tongue base or floor of mouth are identified. Report Dictated By: Sid Dominguez at 08/05/2018 10:10 AM Report E-Signed By: Sid Dominguez at 08/05/2018 10:46 AM WSN:[id number]
[2018-08-08 08:52] VITALS: BP 143/92
--- NOTE | 2018-08-08 10:45 | [facility] ONCOLOGY NOTE ---
EVENT DATE: August 08, 2018 DIAGNOSES 1. 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 2. Depression. 3. Hypertension. 4. Fibromyalgia. CHIEF COMPLAINT Patient is here today for followup of his squamous cell carcinoma of the tongue. ONCOLOGY HISTORY Patient is a 38-year-old male who presented to his dentist with pain along the right lateral tongue. This nodularity progressed to the point the patient could barely speak due to pain with talking. There was no dysphasia, but there was a change in voice. He had a PET/CT scan done January 31, 2018, which showed 1.8 x 1.6 cm mass of the right midline of the tongue with SUV of 13.6. There were no signs of distant metastasis. Patient has been evaluated by Dr. Jerry Quach, and the patient underwent right hemiglossectomy February 14, 2018, at [facility]. The pathology came back positive for roughly 4 cm in the largest dimension by the statement of Dr. Quach, but the specimen was submitted in three portions. The first one was 3.1 cm from the right anterior tongue, another one from the mid tongue 3.5 cm, and the posterior tongue was 2.2 cm. An additional posterior tongue was submitted with a specimen of 3 cm. There was extensive lymph node dissection performed on the right side with 69 total lymph nodes removed. Tumor was present in one small focus at level 4 lymph node, measured 3 mm, but no gurpreet extension. On sectioning the tongue, the size of the tumor was not listed on the anterior submitted specimen, the middle specimen was listed 1.4 cm, and the posterior sectioning was listed 0.6 cm. Margin was initially positive, and additional specimen was submitted for clear margin at that location. The margins were close at 1 mm on the right mid section and 5 mm from the right posterior sectioning. Tumor depth was listed as 8.2 mm. The moderate grade, the lymph node metastasis, and the presence of extensive perineural invasion are poor risk factors. Patient has been evaluated by Dr. Zhou with a plan to start radiation therapy in two weeks from now. Patient was referred for concurrent chemoradiation for his tongue cancer. Patient started chemoradiation with cisplatin weekly on March 25, 2018. He received seven cycles of weekly cisplatin, completed on May 06, 2018. Patient finished his radiation therapy on May 16, 2018. HISTORY OF PRESENT ILLNESS Patient is here today for followup of his squamous cell carcinoma of the tongue. He is doing really very well currently except for dry mouth. He denies any difficulty swallowing or sore throat. PAST MEDICAL HISTORY 1. Fibromyalgia. 2. Eosinophilic gastritis. 3. 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 PAST SURGICAL HISTORY 1. Right hemiglossectomy on February 14, 2018. 2. Appendectomy. 3. Hip replacement. 4. Hernia repair. 5. Three left shoulder arthroscopic surgeries. 6. Three left knee arthroscopic surgeries. FAMILY HISTORY Maternal aunt with breast cancer in her mid 40s. SOCIAL HISTORY Patient is with one biological child. He works currently at [employer] but previously he was working in construction and [employer]. He has a remote history of smoking half pack a day for three to four years. He quit smoking in 2001. He is rarely drinking alcohol. No abuse of recreational drugs. CURRENT MEDICATIONS 1. Cyclobenzaprine hydrochloride 20 mg daily. 2. Simvastatin 20 mg at bedtime. 3. Robaxin 750 mg two tablets three times daily as needed for muscle spasms. 4. Dilaudid 2 mg every four hours as needed for pain. 5. Baclofen 10 mg three times daily. 6. Prednisone 20 mg tablet daily for skin allergies. 7. Trazodone 100 mg three times daily. 8. Omeprazole 40 mg daily. 9. Lyrica 200 mg two to three times daily. ALLERGIES PENICILLIN, ERYTHROMYCIN, and KEFLEX, and all these antibiotics cause hives. PERCOCET which caused memory loss. MORPHINE which caused erythema of the skin. REVIEW OF SYSTEMS CONSTITUTIONAL: No appetite or weight change. No fever, chills, or sweating. No recent infection. HEENT: Ears: No tinnitus or hearing problem. Nose: He has occasional epistaxis. Throat: Patient has some dry mouth from the effect of radiation therapy but denies any sore throat or dysphagia. Eyes: No diplopia or visual changes. RESPIRATORY: He has cough with expectoration. CARDIOVASCULAR: No chest pain, orthopnea, or paroxysmal nocturnal dyspnea (PND). No edema. No palpitations. GASTROINTESTINAL: He has nausea and vomiting. GENITOURINARY: No hematuria or dysuria. MUSCULOSKELETAL: He has fibromyalgia. He has pain, swelling, and a dusky color of the left forearm lately. NEUROLOGIC: He has headache due to migraine. HEMATOLOGIC/LYMPHATIC: He is weak, tired, and fatigued. SKIN: No skin rash or lumps. PSYCHIATRIC: No anxiety or depression. PHYSICAL EXAMINATION GENERAL: Looks stable. Well developed, well nourished, and in no acute distress. VITAL SIGNS: Blood pressure 143/92, pulse 102 per minute, respirations 16 per minute, temperature 97.7, pulse ox 98% on room air. HEENT: Head: Atraumatic. No sinus tenderness to palpation. Eyes: No icterus or conjunctivitis. Mouth and Throat: Mouth ulceration is noted on the inner cheeks and on the lips. NECK: Supple. No cervical or supraclavicular lymphadenopathy. LUNGS: Clear to auscultation and percussion bilaterally. HEART: Regular rate and rhythm. No gallops, murmurs, clicks, or rubs. ABDOMEN: Soft and lax. No tenderness. No hepatosplenomegaly. No masses. EXTREMITIES: No cyanosis, clubbing, or edema. LYMPHATICS: No peripheral lymphadenopathy. NEUROLOGICAL: Conscious, alert, and oriented times three. No focal motor or sensory deficits. PSYCHIATRIC: Mood and affect appear normal. SKIN: No skin rash, bruise, or purpuric eruption. DIAGNOSTIC DATA CBC showed white count 3.9, hemoglobin 15.9, hematocrit 46.3, platelets 202,000. Chem panel totally normal except blood sugar 133 and total bilirubin 1.6. CT neck done on August 05, 2018 did not show any cervical adenopathy and there was no evidence of malignancy but there was some induration of the subcutaneous soft tissues in the submental area bilaterally, most probably due to his radiation therapy. ASSESSMENT 1. 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 Patient received chemoradiation with weekly cisplatin between March 25, 2018 through May 16, 2018. His CT neck done on August 05, 2018 did not show any evidence of cervical adenopathy or malignancy. I am planning to continue followup. I will see him again in three months with CBC, chem panel and magnesium level. Patient currently is doing really very well. 2. Deep venous thrombosis, left upper extremity. Ultrasound of the left upper extremity did reveal a blood clot from the left cephalic to the left subclavian vein. The PICC line was removed. The patient received Eliquis for a few weeks until resolution of his blood clot. PLAN 1. Continue followup. 2. Patient to return in three months with CBC, chem panel and magnesium level. 4. Patient to contact us for any new concerns or complaints. MTDD
== END 2018-09-10 ==
LOC: ONC 08:31
PROVIDERS: ATTEND Internal Medicine Hematology
DX: Z51.11 Encounter for antineoplastic chemotherapy (principal); C02.9 Malignant neoplasm of tongue, unspecified; M79.7 Fibromyalgia; I10 Essential (primary) hypertension; R53.1 Weakness; R53.83 Other fatigue; Z79.899 Other long term (current) drug therapy; R05 Cough; Z92.3 Personal history of irradiation; Z87.891 Personal history of nicotine dependence; R59.0 Localized enlarged lymph nodes; R00.0 Tachycardia, unspecified; R63.4 Abnormal weight loss; Z92.21 Personal history of antineoplastic chemotherapy; I82.622 Acute embolism and thrombosis of deep veins of left upper extremity
CPT/HCPCS: 36415; 70460; 70491; 84443; 85025; 99212; Q9967; 82040; 82247; 82310; 82374; 82435; 82565; 82947; 84075; 84132; 84155; 84295; 84450; 84460; 84520

== ENCOUNTER 2018-08-13 09:27 | Outpatient (RCR) | payer BC, OTHER ==
[2018-08-13 10:04] VITALS: BP 128/88
--- NOTE | 2018-08-13 15:31 | ONCOLOGY FOLLOW UP NOTE ---
EVENT DATE: August 13, 2018 CHIEF COMPLAINT/REASON FOR VISIT 1. Known history of squamous cell carcinoma of the oral tongue. 2. Local excision, followed by postoperative radiation therapy. 3. Initial tumor demonstrated extensive perineural invasion with one positive lymph node in the right neck at level 4. ONCOLOGY HISTORY 1. 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 Tumor size estimated at 4 cm, status post right partial glossectomy and right neck lymph node dissection by Dr. Quach on February 14, 2018. 2. Final histopathology notable for moderately differentiated squamous cell carcinoma. Tumor demonstrated extensive perineural invasion. Tumor was metastatic to one of eight lymph nodes at level 4. Close margin at less than 1 mm on the right. Stage T2 N1 M0. See consultation and completion note for further details. INTERVAL HISTORY Patient is seen for his first post radiation therapy followup appointment. He completed a course of external beam radiation therapy with concurrent chemotherapy on 05/16/18. Systemic therapy was directed by Dr. Aragon. The patient received 6640 cGy with progressive field reduction technique. First treatment was started 03/25/18 and last treatment completed 05/16/18. Six mV photons were utilized with IMRT. Patient tolerated the radiotherapy course reasonably well. He does have significant fibromyalgia and depression, but overall, he has been doing fairly well. The patient states he is going to see his primary provider in the next week as he has been experiencing some difficulty with his balance of late. The patient is not experiencing any pain in the mouth. He is staying well hydrated. He uses water on a p.r.n. basis at this time. No swallowing difficulties. No aspiration symptoms. Prior to this appointment, he had a CBC, CMP, and TSH which were normal. He had a CT scan through the oral cavity and neck which also was normal, and I reviewed the study with him on the monitor today. MEDICATIONS 1. BuSpar 15 mg b.i.d. 2. Baclofen 10 mg t.i.d. 3. Lyrica 200 mg t.i.d. 4. Methocarbamol one to two tablets t.i.d. p.r.n. 5. Prilosec 40 mg daily. 6. Trazodone 100 mg at bedtime. 7. Vortioxetine 10 mg q. day. 8. Ativan 0.5 mg q.4 hours p.r.n. ALLERGIES ERYTHROMYCIN, KEFLEX, PENICILLIN, PERCOCET, MORPHINE. PAST MEDICAL HISTORY 1. Fibromyalgia. 2. Chronic anxiety. 3. Asthma. 4. Depression. 5. Cardiac arrhythmia. 6. Hypercholesterolemia. 7. Hypertension. 8. 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 SURGICAL HISTORY 1. Partial glossectomy. 2. Prior appendectomy 2005. 3. Prior hip replacement bilaterally. 4. Hernia repair 1999. 5. Left knee scope. 6. Left shoulder scope. FAMILY HISTORY Mother is alive with hypertension. Father had thyroid issues. Paternal uncle had head and neck cancer. SOCIAL HISTORY Patient previously smoke half pack per day for four years (two packs per day). He quit smoking 16 years ago. Social alcohol use. with one child. 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 COMPREHENSIVE REVIEW OF SYSTEMS See notes on chart. Patient has problems with balance, peripheral neuropathy, occasional weakness in the hands, arms, legs, muscle pain, intermittent falls. PHYSICAL EXAMINATION VITAL SIGNS: Weight 163, BP 128/88, pulse 86, respirations 16, O2 sat 97% on room air. NECK: No palpable lymphadenopathy in neck. HEENT: Intraoral inspection reveals no signs of any thrush, good moisture, good dentition. No suspicious lesions identified. Good tongue mobility. Palpation of the tongue reveals no nodularity. LUNGS: Clear bilaterally. HEART: Sounds regular. ABDOMEN: Soft. No gross organomegaly. NEUROLOGIC: No focal weakness in the upper extremities. Gait not tested. IMPRESSION Overall, the patient is doing exceptionally well in my opinion with complete therapeutic response to the combined modality program. PLAN Patient will follow up in three months with PET CT scan. I will request that in [place] since the first study was done there. I will see him at that juncture. Continue to follow him closely with his other providers. LUIS ALBERTO
--- NOTE | 2018-09-12 10:07 | NUR ---
Pt came in today to check in and see about getting a new prescription for his lyrica. SW confirmed that the patient assistance program did in fact need a new prescription, and they did because the original prescription that was sent in with the application only had 1 refill. LILIBETH then contacted the PCP and requested a new prescription which was promptly faxed over. LILIBETH faxed the prescription to [employer] patient assistance program. LILIBETH will call [facility] tomorrow to ensure the prescription was received and request a new shipment.
--- NOTE | 2018-09-16 10:04 | NUR ---
SW contacted [employer] to ensure the prescription was received and being processed. The medication will arrive at [facility] between 09/25/18 and 09/30/18.
--- NOTE | 2018-09-24 10:16 | NUR ---
Pt's Lara arrived today. SW contacted pt about this and pt will be coming in later today to pick up driver.
[2018-11-08] MEDS ORDERED: BUSP30TA18 PO (12:42)
== END 2018-11-10 ==
LOC: RAON 09:27
PROVIDERS: ATTEND Radiology Radiation Oncology
DX: C02.9 Malignant neoplasm of tongue, unspecified (principal); C77.0 Secondary and unspecified malignant neoplasm of lymph nodes of head, face and neck; Z92.3 Personal history of irradiation
CPT/HCPCS: 99212

== ENCOUNTER 2018-08-21 10:21 | Emergency (ER) | payer OTHER, BC ==
[2018-08-21] MEDS ORDERED: EMS NS 0.9%(*) 1000 ML BAG 1,000 ML IV ONE (10:25)
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
== END 2018-08-21 11:44 | disposition home or self-care (01) ==
LOC: ER 10:32
DX: M54.2 Cervicalgia (principal); M54.5 Low back pain; Z87.891 Personal history of nicotine dependence; V48.0XXA Car driver injured in noncollision transport accident in nontraffic accident, initial encounter
CPT/HCPCS: 72040; 72100; 96360; 99283

== ENCOUNTER → 2018-08-21 | Outpatient (CLI) | payer OTHER, BC | LOC: AMB 09:37 | PROVIDERS: ATTEND Nurse Practitioner | DX: M54.5 Low back pain (principal); M54.2 Cervicalgia; M25.552 Pain in left hip; M25.551 Pain in right hip; V48.5XXA Car driver injured in noncollision transport accident in traffic accident, initial encounter; Y92.411 Interstate highway as the place of occurrence of the external cause | CPT/HCPCS: A0425; A0433 ==

== ENCOUNTER 2018-10-29 08:20 | Outpatient (RCR) | payer BC ==
--- NOTE | 2018-10-24 10:28 | PT INITIAL EVALUATION ---
MEDICAL DIAGNOSIS: low back pain TREATMENT DIAGNOSIS: same DATE OF ONSET: 06/18/18 SUBJECTIVE: Ryan King presents to physical therapy with complaints of low back pain that has been bothering him for a long time; however, he states that recently it has gotten much worse. He reports that he had two injections a few weeks apart. He reports that the second injection reduced his pain to a 3/10 and he thought that it was going to help; however, it returned to his normal level of 9/10 constant sharp pain that radiates down his L LE to his thigh but has gone down to his foot and has also gone done his R LE to his thigh. He reports that sitting upright in his office chair makes it feel better temporary but can only sit from 20-30 minutes before his legs start tingling. He reports that when he bends his cervical spine into flexion he get a shock like feeling that goes down his B UEs and B LEs. He reports that he is worse with bending, sitting (unless he is in the office chair), standing (okay to stay for a while but then it become extremely painful), walking (okay during but following is extremely painful), and lying down. He reports that he is not sleeping well due to the pain becoming worse. He reports increased pain with coughing, sneezing, and straining. He denies any changes in his bowel and bladder since the pain started. He reports that he has a history of head and neck cancer. He reports that he had an MRI about a year ago that revealed herniated discs and some compression. He reports that he had a roll over in his blazer that happened in August that made his back worse. He reports night pain. He denies any unexplained weight lose. Pain location is L1-5 from spinous process to R PSIS to L PSIS. Pain scale is 9 on a ten point pain scale. REHAB PROBLEM LIST: Increased Pain Decreased ROM Decreased Strength Decreased Endurance Decreased Balance Decreased Function Decreased ADL's Decreased Mobility Decreased Gait PREVIOUS MEDICAL HISTORY: See EMR OCCUPATION: Labor OBJECTIVE: Posture: He demonstrates excellent posture mechanics since it feels better to do so ROM: Trunk AROM: flexion: major restriction, extension: major restriction, R and L side gliding: major restriction. He demonstrated empty end feels with all directions Strength: L LE: 4/5. R LE: 4+/5. Palpation: TTP: in the whole region of L1-5 from spinous process to R PSIS to L PSIS. Special Tests: Repeated extension in lying: increased pain during and increased radiating to his L foot as a result, which is worse. Repeated flexion in lying: increased pain during and increased radiating pain to his L foot as a result, which is worse. Returned to static upright sitting, which decreased radiating pain to L thigh, which is an improvement Mobility: Modified Independent Gait: He demonstrated antalgic gait, increased base of support, increased lateral trunk movement, decreased pelvic rotation, decreased B step lengths, decreased B foot clearance, and decreased velocity. ASSESSMENT: Ryan will benefit from skilled physical therapy to address the listed impairments to improve function and QOL. Based on his examination, his provisional classification is other, which decreases his prognosis within PT but we will see how it progresses over the next 4 sessions. He also demonstrated Lhermitte's sign, which I thought would be important for you to keep on your radar. Short Term Goals 2 weeks: Pt will demonstrate directional preference to increased trunk AROM and decrease lumbar pain to improve function and QOL. 4 weeks: If pt demonstrates directional preference, he will demonstrate decreased to abolished radiating pain, centralized low back pain, and increased trunk AROM to improve function and QOL. 6 weeks: If pt demonstrates directional preference, he will demonstrate abolished radiating pain, abolished centralized pain, full trunk AROM, and return to prior level of function to improve QOL. Patient's Goals reduce pain and figure something out PLAN: Patient to be seen for Manual Therapy/STM/MET Strengthening/condition Ice/Heat Range of Motion Spinal Stabilization Work Hardening/Cond Stretching Iontophoresis Neuromuscular Re-ed Closed Chain Program Electrical Stim Posture/Body mechanics Gait Trg/Balance Trg Home Exercise Program Therapeutic Activities 2x/Week for 6 Weeks If you have any questions, comments, or concerns about this report or plan, please contact me at . Thank you, Tobias Yoder, PT, DPT MTDD
--- NOTE | 2018-10-30 15:11 | PT PLAN OF CARE ---
Physician: Marques Del Valle MD Patient is being seen: examination + other treatment Therapist: Tobias Yoder, PT, DPT Medical Diagnosis: low back pain Treatment Diagnosis: same Date of Onset: 06/18/18 Date of Initial Evaluation: 10/24/18 Date patient was last seen: 10/29/18 Number of treatments: 2 Number of cancellations/No shows: 0 INTERVENTIONS: Manual Therapy/STM/MET Strengthening/condition Ice/Heat Range of Motion Spinal Stabilization Work Hardening/Cond Stretching Iontophoresis Neuromuscular Re-ed Closed Chain Program Electrical Stim Posture/Body mechanics Gait Trg/Balance Trg Home Exercise Program Therapeutic Activities GOALS: 2 weeks: Pt will demonstrate directional preference to increased trunk AROM and decrease lumbar pain to improve function and QOL. 4 weeks: If pt demonstrates directional preference, he will demonstrate decreased to abolished radiating pain, centralized low back pain, and increased trunk AROM to improve function and QOL. 6 weeks: If pt demonstrates directional preference, he will demonstrate abolished radiating pain, abolished centralized pain, full trunk AROM, and return to prior level of function to improve QOL. PATIENT'S GOAL: reduce pain and figure something out Status of Patient's Goals: No progress just worsened Patient Compliance: Good Prognosis: Fair Reasons for continuing therapy: This is a discharge note for Ryan King. Like I said in the initial examination that I was nervous that he was in the other category, it was very evident today that he is in the other category and does not have any mechanical orientation of his pain and we just seem to make him worse with any movement and modalities did not seem to change his pain at all even for a short period. Therefore, I am sending him back to Dr. Del Valle for further investigation. Thank you. Posture: He demonstrates excellent posture mechanics since it feels better to do so ROM: Trunk AROM: flexion: major restriction, extension: major restriction, R and L side gliding: major restriction. He demonstrated empty end feels with all directions Strength: L LE: 4/5. R LE: 4+/5. Palpation: TTP: in the whole region of L1-5 from spinous process to R PSIS to L PSIS. Special Tests: Repeated extension in lying: increased pain during and increased radiating to his L foot as a result, which is worse. Repeated flexion in lying: increased pain during and increased radiating pain to his L foot as a result, which is worse. Returned to static upright sitting, which decreased radiating pain to L thigh, which is an improvement Mobility: Modified Independent If you have any questions, please contact me at [phone]. Thank you, Tobias Yoder, PT, DPT LUIS ALBERTO
== END 2018-10-29 18:00 | disposition home or self-care (01) ==
LOC: PT 08:20
PROVIDERS: ATTEND Orthopaedic Surgery
DX: M54.5 Low back pain (principal)
CPT/HCPCS: 97163

== ENCOUNTER 2018-12-11 20:50 | Emergency (ER) | payer BC ==
[~2018-12-11 20:50] MED LIST changes: +BUSP30TA18 PO
--- NOTE | 2018-12-11 21:10 | ER Report ---
History and Physical Time Seen By MD: 21:08 HPI/ROS CHIEF COMPLAINT: Possible forearm injury HISTORY OF PRESENT ILLNESS: This is a 38-year-old male who presents to emergency department for a forearm injury. Patient states that a couple of days ago he was working in his shop, after that he developed some pain to his distal forearm on the radial side. States that he's had some swelling and pain, painful with supination and pronation. He denies fevers or chills. He is status post chemotherapy and radiation treatment and surgery for throat and mouth cancer (squamous cell carcinoma). He also has a history of clots. He does not recall any specific injury to the right forearm, it is warm over the distal aspect of the radial head. REVIEW OF SYSTEMS: Respiratory: No cough, no dyspnea. Cardiovascular: No chest pain, no palpitations. Gastrointestinal: No vomiting, no abdominal pain. Musculoskeletal: As above. Allergies: Coded Allergies: Penicillins (Verified Allergy, Unknown, HIVES, 12/11/18) cephalexin (Verified Allergy, Unknown, 12/11/18) erythromycin base (Verified Allergy, Unknown, 12/11/18) morphine (Verified Allergy, Unknown, 12/11/18) Home Meds Active Scripts Sulfamethoxazole/Trimet 800-160 Mg Tab (BACTRIM DS TABLET) 1 Each Tablet, 1 TAB PO Q12H for 7 Days, #14 TAB 0 Refills Prov:JEROD MOLINA DRESS SHOE INSPECTOR-BC 12/11/18 Reported Medications Vortioxetine Hydrobromide (Brintellix) 20 Mg Tablet, 20 PO DAILY 12/11/18 Buspirone Hcl (BUSPIRONE HCL) 30 Mg Tablet, 30 MG PO DAILY, #10 TAB 11/08/18 Losartan Potassium (LOSARTAN POTASSIUM) 25 Mg Tablet, 25 MG PO QDAY 07/07/18 Simvastatin (SIMVASTATIN) 20 Mg Tablet, 20 MG PO HS, TAB 03/14/18 Cyclobenzaprine Hcl (CYCLOBENZAPRINE HCL) 10 Mg Tablet, 20 MG PO DAILY, #9 TAB 03/14/18 Trazodone Hcl (TRAZODONE HCL) 100 Mg Tablet, 100 MG PO PRN, TAB 12/28/17 Omeprazole (OMEPRAZOLE) 40 Mg Capsule.dr, 40 MG PO QDAY, CAP 12/28/17 Pregabalin (LYRICA) 200 Mg Cap, 200 MG PO 2-3XD, CAP 12/28/17 Discontinued Reported Medications Vortioxetine Hydrobromide (Brintellix) 10 Mg Tablet, 2 TAB PO DAILY 03/13/18 Past Medical/Surgical History The patient has a past medical and surgical history of fibromyalgia, heart murmur, "possible heart attack"tachycardia, hypertension, hypercholesterolemia, asthma, GERD, bilateral hip replacements, secondary to avascular necrosis, osteopenia, fractures, squamous cell carcinoma to the throat, tongue and mouth, thrush, DVT and left arm, depression, anxiety, chemotherapy, radiation treatment, GI bleed, appendectomy, shoulder surgery, cervical lymph nodes removed. Reviewed Nurses Notes: Yes Hx Smoking: Yes Smoking Status: Former Smoker Exposure to Second Hand Smoke?: No Hx Substance Use Disorder: No Hx Alcohol Use: No Constitutional Vital Sign - Last 24 Hours 12/11/18 12/11/18 12/11/18 12/11/18 21:06 21:09 21:20 21:30 Temp 97.7 Pulse 88 ??? Resp 15 B/P (MAP) 131/98 (109) 131/98 ???/??? (1665) Pulse Ox 95 O2 Delivery Room Air 12/11/18 12/11/18 12/11/18 12/11/18 21:34 21:50 22:00 22:20 Pulse 78 82 B/P (MAP) 129/88 (102) 127/92 (104) Pulse Ox 94 95 12/11/18 12/11/18 12/11/18 12/11/18 22:30 22:35 23:00 23:05 Pulse 77 85 B/P (MAP) 134/92 (106) 124/87 (99) Pulse Ox 93 93 Physical Exam General Appearance: The patient is alert, has no immediate need for airway protection and no current signs of toxicity. Eyes: Pupils equal and round no injection. Respiratory: Chest is non tender, lungs are clear to auscultation. Cardiac: regular rate and rhythm. Gastrointestinal: Abdomen is soft and non tender, no masses, bowel sounds normal. Musculoskeletal: Neck: Neck is supple and non tender. Extremities pain to the right distal forearm along the radius, the area is warm to touch, small amount of swelling, no obvious deformities or crepitus. CMS intact. Pain with supination and pronation. Skin: No rashes or lesions. DIFFERENTIAL DIAGNOSIS: After history and physical exam differential diagnosis was considered for fracture, DVT, cellulitis. Medical Decision Making EKG/Imaging Imaging PATIENT NAME: Ryan King : 1980 MR: [id number] V: [id number] EXAM DATE: [id number] ORDERING PHYSICIAN: JEROD MOLINA TECHNOLOGIST: Location: [facility] [place] Patient: Ryan King : 1980 Visit/Account:[id number] Date of Sevice: 12/11/2018 EXAMINATION: Right Upper Extremity Venous Ultrasound HISTORY: Right forearm redness and swelling. TECHNIQUE: Ultrasound evaluation of the right upper extremity veins was perf ormed with color and spectral Doppler and compression views. COMPARISON: None. FINDINGS: The right internal jugular vein is patent and compressible. The right subclavian vein appears patent by color and spectral Doppler. The right axillary, brachial, basilic, radial, and ulnar veins are patent and compressible, without evidence of intraluminal thrombus. IMPRESSION: Normal exam. No evidence of DVT in the right upper extremity. Report Dictated By: Evan Funez MD at 12/11/2018 10:58 PM Report E-Signed By: Evan Funez MD at 12/11/2018 11:00 PM WSN:[id number] PATIENT NAME: Ryan King : 1980 MR: [id number] V: [id number] EXAM DATE: [id number] ORDERING PHYSICIAN: JEROD MOLINA TECHNOLOGIST: Location: [facility] [place] Patient: Ryan King : 1980 Visit/Account:[id number] Date of Sevice: 12/11/2018 INDICATION: pain, swelling. DATE: 12/11/2018 9:57 PM. TECHNIQUE: FOREARM RIGHT COMPARISON: None FINDINGS: Normal alignment without evidence of fracture or dislocation. IMPRESSION: No acute osseous abnormality. Report Dictated By: Prabha Mendiola MD at 12/11/2018 9:57 PM Report E-Signed By: Prabha Mendiola MD at 12/11/2018 9:57 PM WSN:[email or web address] ED Course/Re-evaluation ED Course The patient was admitted to room. A history and physical obtained. Differential diagnoses were considered. An x-ray of the right forearm was negative for any acute osseous abnormalities. Ultrasound of the right upper extremity was negative for DVT. Review the results with the patient's, we will treat him for cellulitis. Patient was started on Bactrim in the emergency department. A prescription was sent to the patient's pharmacy. Patient was instructed to monitor closely for worsening symptoms, should he have any concerns he will return to the emergency department immediately. He had no other questions or concerns at time and discharged home. Decision to Disposition Date: Dec 11, 2018 Decision to Disposition Time: 23:05 Depart Departure Latest Vital Signs Vital Signs Date Time Temp Pulse Resp B/P (MAP) Pulse Ox O2 Delivery O2 Flow Rate FiO2 12/11/18 23:05 85 93 12/11/18 23:00 124/87 (99) 12/11/18 21:09 97.7 15 Room Air Impression: Primary Impression: Cellulitis of right forearm Condition: Improved Disposition: HOME OR SELF-CARE Referrals: JANIE AKHTAR PA-C (PCP) 2 Days New Scripts Sulfamethoxazole/Trimet 800-160 Mg Tab (BACTRIM DS TABLET) 1 Each Tablet 1 TAB PO Q12H for 7 Days, #14 TAB 0 Refills Prov: JEROD MOLINA 12/11/18 Patient Instructions: Cellulitis (ED) Additional Instructions: The Xray and Ultrasound were negative for fracture and blood clots. Take the antibiotics as directed. Drink plenty of water. Get plenty of rest. Ibuprofen or Tylenol as needed for pain. You can also try Aspercream with lidocaine for topical pain relief. Please follow up with your PCP within the next 2 days for reevaluation. The redness, pain and swelling will likely remain the same, but may progress a little more for the next 48-72 hours. Return to the ED for any other concerns or worsening symptoms. JEROD MOLINA Dec 11, 2018 21:10
[2018-12-11] MEDS ORDERED: VORT20TA PO (21:13)
[2018-12-11] MEDS ORDERED: APAP/HYDROCODONE 325/5 TAB PO ONE (21:45)
--- NOTE | 2018-12-11 22:03 | RADIOLOGY IMAGING REPORT ---
FACILITY: [facility] - [place] PATIENT NAME: Ryan King : 1980 MR: [id number] V: [id number] EXAM DATE: ORDERING PHYSICIAN: JEROD MOLINA TECHNOLOGIST: Location: [facility] [place] Patient: Ryan King : 1980 Visit/Account:[id number] Date of Sevice: 12/11/2018 INDICATION: pain, swelling. DATE: 12/11/2018 9:57 PM. TECHNIQUE: FOREARM RIGHT COMPARISON: None FINDINGS: Normal alignment without evidence of fracture or dislocation. IMPRESSION: No acute osseous abnormality. Report Dictated By: Prabha Mendiola MD at 12/11/2018 9:57 PM Report E-Signed By: Prabha Mendiola MD at 12/11/2018 9:57 PM WSN:[id number]
[2018-12-11] MEDS ORDERED: SULF-198 PO (22:31)
[2018-12-11] MEDS ORDERED: TRIMETH/SULFA DS 160-800MG TAB PO ONE (22:45)
[2018-12-11 23:00] VITALS: BP 124/87
--- NOTE | 2018-12-11 23:05 | RADIOLOGY IMAGING REPORT ---
FACILITY: [facility] PATIENT NAME: Ryan King : 1980 MR: [id number] V: [id number] EXAM DATE: ORDERING PHYSICIAN: JEROD MOLINA TECHNOLOGIST: Location: [facility] Patient: Ryan King : 1980 Visit/Account:[id number] Date of Sevice: 12/11/2018 EXAMINATION: Right Upper Extremity Venous Ultrasound HISTORY: Right forearm redness and swelling. TECHNIQUE: Ultrasound evaluation of the right upper extremity veins was performed with color and spe ctral Doppler and compression views. COMPARISON: None. FINDINGS: The right internal jugular vein is patent and compressible. The right subclavian vein appears patent by color and spectral Doppler. The right axillary, brachial, basilic, radial, and ulnar veins are patent and compressible, without e vidence of intraluminal thrombus. IMPRESSION: Normal exam. No evidence of DVT in the right upper extremity. Report Dictated By: Evan Funez MD at 12/11/2018 10:58 PM Report E-Signed By: Evan Funez MD at 12/11/2018 11:00 PM WSN:[id number]
== END 2018-12-11 23:16 | disposition home or self-care (01) ==
LOC: ER 21:13
DX: L03.113 Cellulitis of right upper limb (principal)
CPT/HCPCS: 99284

== ENCOUNTER 2019-01-08 10:04 | Outpatient (RCR) | payer BC ==
[2018-11-05 08:21] VITALS: BP 128/106
[2018-11-05 09:03] LABS: PLATELET COUNT, AUTOMATED 236 K/uL (150-450)
[2018-11-08 12:40] VITALS: BP 132/82
--- NOTE | 2018-11-09 01:02 | EL-TARABILY ONCOLOGY NOTE ---
EVENT DATE: November 08, 2018 DIAGNOSES 1. 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 2. Depression. 3. Hypertension. 4. Fibromyalgia. CHIEF COMPLAINT Patient is here today for followup of his squamous cell carcinoma of the tongue. ONCOLOGY HISTORY Patient is a 38-year-old male who presented to his dentist with pain along the right lateral tongue. This nodularity progressed to the point the patient could barely speak due to pain with talking. There was no dysphagia, but there was a change in voice. He had a PET/CT scan done January 31, 2018, which showed 1.8 x 1.6 cm mass of the right midline of the tongue with SUV of 13.6. There were no signs of distant metastasis. Patient has been evaluated by Dr. Jerry Quach, and the patient underwent right hemiglossectomy February 14, 2018, at [facility]. The pathology came back positive for roughly 4 cm in the largest dimension by the statement of Dr. Quach, but the specimen was submitted in three portions. The first one was 3.1 cm from the right anterior tongue, another one from the mid tongue 3.5 cm, and the posterior tongue was 2.2 cm. An additional posterior tongue was submitted with a specimen of 3 cm. There was extensive lymph node dissection performed on the right side with 69 total lymph nodes removed. Tumor was present in one small focus at level 4 lymph node, measured 3 mm, but no gurpreet extension. On sectioning the tongue, the size of the tumor was not listed on the anterior submitted specimen, the middle specimen was listed 1.4 cm, and the posterior sectioning was listed 0.6 cm. Margin was initially positive, and additional specimen was submitted for clear margin at that location. The margins were close at 1 mm on the right mid section and 5 mm from the right posterior sectioning. Tumor depth was listed as 8.2 mm. The moderate grade, the lymph node metastasis, and the presence of extensive perineural invasion are poor risk factors. Patient has been evaluated by Dr. Zhou with a plan to start radiation therapy in two weeks from now. Patient was referred for concurrent chemoradiation for his tongue cancer. Patient started chemoradiation with cisplatin weekly on March 25, 2018. He received seven cycles of weekly cisplatin, completed on May 06, 2018. Patient finished his radiation therapy on May 16, 2018. HISTORY OF PRESENT ILLNESS Patient is here today for followup of his squamous cell carcinoma of the tongue. He is doing fine currently except for back pain due to disc herniation, and the patient had shots in his back recently. He has dry mouth from previous radiation therapy and has occasional headache, but other than that, his general condition is stable. PAST MEDICAL HISTORY 1. Fibromyalgia. 2. Eosinophilic gastritis. 3. 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 PAST SURGICAL HISTORY 1. Right hemiglossectomy on February 14, 2018. 2. Appendectomy. 3. Hip replacement. 4. Hernia repair. 5. Three left shoulder arthroscopic surgeries. 6. Three left knee arthroscopic surgeries. FAMILY HISTORY Maternal aunt with breast cancer in her mid 40s. SOCIAL HISTORY Patient is with one biological child. He works currently at [email or web address], but previously he was working in construction and [employer]. He has a remote history of smoking half pack a day for three to four years. He quit smoking in 2001. He is rarely drinking alcohol. No abuse of recreational drugs. CURRENT MEDICATIONS 1. Cyclobenzaprine hydrochloride 20 mg daily. 2. Simvastatin 20 mg at bedtime. 3. Robaxin 750 mg two tablets three times daily as needed for muscle spasms. 4. Dilaudid 2 mg every four hours as needed for pain. 5. Baclofen 10 mg three times daily. 6. Prednisone 20 mg tablet daily for skin allergies. 7. Trazodone 100 mg three times daily. 8. Omeprazole 40 mg daily. 9. Lyrica 200 mg two to three times daily. ALLERGIES PENICILLIN, ERYTHROMYCIN, and KEFLEX, and all these antibiotics cause hives. PERCOCET which caused memory loss. MORPHINE which caused erythema of the skin. REVIEW OF SYSTEMS CONSTITUTIONAL: No appetite or weight change. No fever, chills or sweating. No recent infection. HEENT: Ears: No tinnitus or hearing problem. Nose: No nasal discharge or epistaxis. Throat: He has dry mouth. Eyes: No diplopia or visual changes. RESPIRATORY: No shortness of breath. No cough, expectoration or hemoptysis. CARDIOVASCULAR: No chest pain, orthopnea, or paroxysmal nocturnal dyspnea (PND). No edema. No palpitations. GASTROINTESTINAL: No nausea or vomiting. No diarrhea or constipation. No change in bowel movements. No heartburn or swallowing difficulties. No abdominal pain. No jaundice. No hematemesis, melena or rectal bleeding. GENITOURINARY: No hematuria or dysuria. MUSCULOSKELETAL: He has back pain due to herniated disc. NEUROLOGICAL: He has occasional headache. HEMATOLOGIC/LYMPHATIC: No bleeding or easy bruising. No weakness or fatigue. No enlarged lymph nodes. SKIN: No skin rash or lumps. PSYCHIATRIC: No anxiety or depression. PHYSICAL EXAMINATION GENERAL: Looks stable. Well-developed, well-nourished, and in no acute distress. VITAL SIGNS: Blood pressure 132/82, pulse 90 per minute, respirations 16 per minute, temperature 97, pulse ox 95% on room air. HEENT: Head: Atraumatic. No sinus tenderness to palpation. Eyes: No icterus or conjunctivitis. Mouth and throat: No oral thrush or mucositis. NECK: Supple. No cervical or supraclavicular lymphadenopathy. LUNGS: Clear to auscultation and percussion bilaterally. HEART: Regular rate and rhythm. No gallops, murmurs, clicks or rubs. ABDOMEN: Soft and lax. No tenderness. No hepatosplenomegaly. No masses. EXTREMITIES: No cyanosis, clubbing or edema. LYMPHATICS: No peripheral lymphadenopathy. NEUROLOGICAL: Conscious, alert and oriented times three. No focal motor or sensory deficits. PSYCHIATRIC: Mood and affect appear normal. SKIN: No skin rash, bruise or purpuric eruption. DIAGNOSTIC DATA CBC showed white count 3.4, hemoglobin 15.6, hematocrit 46.1, platelets 236,000. Chem panel normal except blood sugar 68 and AST 39. PET/CT scan done on 28 Oct 2018 showed broad increased activity in the entire trunk with SUV 8.5; could be due to either tumor progression or post-treatment change. There was also bilateral parotid uptake, which was thought to be due to post treatment related. There was no regional or metastatic disease. ASSESSMENT 1. 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 Patient received chemoradiation with weekly cisplatin between March 25, 2018, through May 16, 2018. CT scan of the neck done August 05, 2018, did not show any evidence of cervical adenopathy or malignancy. His current PET scan done on 28 Oct 2018 did reveal broad increased activity in the entire tongue, with SUV 8.5, which could be either due to tumor progression (which is unlikely, given that his tongue looks normal on inspection) versus post-treatment change. There was also bilateral uptake in the parotid, which could also be post treatment related. I am planning to continue followup. I will see him again in three months with CBC and chem panel. 2. Deep venous thrombosis, left upper extremity. Ultrasound of the left upper extremity did reveal blood clot from the left cephalic to the left subclavian vein. PICC line was removed and the patient received Eliquis for a few weeks until the resolution of the blood clot. PLAN 1. Continue followup. 2. Patient to return in three months with CBC, chem panel. 3. Patient to contact us for any new concerns or complaints. LUIS ALBERTO
[2019-01-08 10:04] VITALS: BP 132/86
[~2019-01-08 10:04] MED LIST changes: +VORT20TA PO
--- NOTE | 2019-01-08 11:43 | ONCOLOGY FOLLOW UP NOTE ---
EVENT DATE: January 08, 2019 CHIEF COMPLAINT Followup for head and neck cancer. HISTORY OF PRESENT ILLNESS Patient is a 38-year-old male who is seen today as a work-in. He has noted a 3 to 4 day history of "lumps" on the right side of his neck. His believes they are getting larger. Overall, he feels he is managing well. His weight is stable. He does have chronic fatigue as well as chronic low back pain. He has received steroid injections, which have been somewhat helpful. ONCOLOGY HISTORY Patient is a 38-year-old male who presented to his dentist with pain in his right lateral tongue. PET scan on January 31, 2018, did not show any systemic metastases. He underwent right hemiglossectomy on February 14, 2018, which revealed a squamous cell carcinoma with one lymph node positive at level 4 and extensive perineural invasion. The tongue lesion measured 1.8 x 1.6 cm with an SUV of 13.6. He began concurrent chemoradiation with weekly cisplatin on March 25, 2018, and completed six cycles on April 29, 2018. Completed radiation therapy on 06/15/2018. PET scan on October 28, 2018 showed increased activity in the entire tongue with an SUV of 8.5, likely related to treatment changes. MEDICAL HISTORY 1. Fibromyalgia. 2. Eosinophilic gastritis. 3. Squamous cell carcinoma of the tongue. 4. Left upper extremity DVT, April 19, 2018. PAST SURGICAL HISTORY 1. Right hemiglossectomy on February 14, 2018. 2. Appendectomy. 3. Hip replacement. 4. Hernia repair. 5. Three left shoulder arthroscopic surgeries. 6. Three left knee arthroscopic surgeries. FAMILY HISTORY Maternal aunt had breast cancer in her mid 40s. SOCIAL HISTORY Patient is . They have one child. He is disabled. He has a remote history of smoking half a pack a day for three to four years, but quit in 2001. He rarely drinks alcohol and does not used recreational drugs. CURRENT MEDICATIONS 1. Cyclobenzaprine 20 mg daily. 2. Simvastatin 20 mg at bedtime. 3. Trazodone 100 mg at bedtime p.r.n. 4. Omeprazole 40 mg daily. 5. Lyrica 200 mg b.i.d. to t.i.d. 6. Brintellix 10 mg daily. ALLERGIES PENICILLIN, ERYTHROMYCIN, KEFLEX which caused hives. PERCOCET caused memory loss. MORPHINE caused erythema of the skin. REVIEW OF SYSTEMS A 12-point review of systems is performed and is negative except as stated above. PHYSICAL EXAMINATION VITAL SIGNS: Weight 78 kg, BP 132/86, P 100, R 16, temperature 97.7, O2 sat 97%. GENERAL: Patient is a well-developed, well-nourished male in no acute distress. He ambulates using a cane. HEAD: Normocephalic, atraumatic. EYES: Sclerae anicteric. MOUTH: Moist mucous membranes. No lesions noted, although patient feels the right side of his tongue is chronically irritated. NECK: Supple with skin changes due to previous radiation. There is a well- healed incision on the right neck. There are two very small, soft, nodular densities on either side of the incision. No other palpable adenopathy. LUNGS: Clear bilaterally. CARDIOVASCULAR: Heart rate regular, 100 per minute. EXTREMITIES: No edema. NEUROLOGIC: Nonfocal. LABORATORY No lab. IMPRESSION AND PLAN The patient is a 38-year-old male diagnosed with squamous cell carcinoma of the tongue, locally advanced, with positive lymph node. Completed concurrent chemoradiation with weekly cisplatin from March 25, 2018, through May 16, 2018. PET scan on October 28, 2018 showed increased activity in the entire tongue with an SUV of 8.5, likely felt to be secondary to treatment effects. 1. Squamous cell carcinoma of the tongue. Patient has, for the most part, recovered from his previous chemoradiation. He is eating well and his weight has increased 2.5 kg in the past six months. 2. Right neck nodules. Presents with a 3 to 4 day history of two very soft, small, nodular densities on either side of the incision. Ultrasound will be scheduled on January 09, 2019 to further evaluate. 3. Followup as scheduled for continued care or earlier pending results of ultrasound. MTDD
== END 2019-02-02 ==
LOC: ONC 10:04
PROVIDERS: ATTEND Internal Medicine Hematology
DX: C02.9 Malignant neoplasm of tongue, unspecified (principal); I82.622 Acute embolism and thrombosis of deep veins of left upper extremity; F32.9 Major depressive disorder, single episode, unspecified; I10 Essential (primary) hypertension; M79.7 Fibromyalgia; Z79.899 Other long term (current) drug therapy; Z87.891 Personal history of nicotine dependence
CPT/HCPCS: 36415; 82040; 82247; 82310; 82374; 82435; 82565; 82947; 83735; 84075; 84132; 84155; 84295; 84450; 84460; 84520; 85025; 99212

== ENCOUNTER → 2019-01-09 | Outpatient (CLI) | payer BC ==
--- NOTE | 2019-01-09 17:34 | RADIOLOGY IMAGING REPORT ---
FACILITY: [facility] PATIENT NAME: Ryan King : 1980 MR: [id number] V: [id number] EXAM DATE: ORDERING PHYSICIAN: CARLITOS BEAULIEU TECHNOLOGIST: Location: [facility] [place] Patient: Ryan King : 1980 Visit/Account:[id number] Date of Sevice: 01/09/2019 SOFT TISSUE HEAD NECK HISTORY: Squamous cell carcinoma treatment previous year. ADDITIONAL HISTORY: None. COMPARISON: CT neck 08/05/2018 FINDINGS: Thyroid gland appears normal. Iron Assorter has diagrammed scar in the right side of the neck. A. In the right zone four level there are two small morphologically normal-appearing Lymph nodes each me asuring 5 mm in longest dimension. There is no evidence of cervical adenopathy on either the right o r left side of the neck. IMPRESSION: No evidence of gurpreet metastatic disease by size criteria Report Dictated By: Michael Polk MD at 01/09/2019 5:23 PM Report E-Signed By: Michael Polk MD at 01/09/2019 5:28 PM WSN:[id number]
== END ==
LOC: US 00:16
PROVIDERS: ATTEND Nurse Practitioner
DX: C02.9 Malignant neoplasm of tongue, unspecified (principal)
CPT/HCPCS: 76536